=== PATIENT | male | born 1955 | race Caucasian/White ===

== ENCOUNTER 2019-07-30 14:10 | Outpatient (CLI) | payer MEDICARE, SELFPAY ==
--- NOTE | ~2019-07-30 | US_ITS ---
EXAMINATION: US arterial ankle brachial ind DATE: 07/30/2019 15:05 INDICATION: Atherosclerosis of the [place] arteries of the lower extremity with claudication TECHNIQUE: Segmental pressures and plethysmographic and Doppler waveforms of the brachial and lower e xtremity arteries were obtained. COMPARISON: None. FINDINGS: Right and left brachial artery pressures of 131 mm Hg and 120 mm Hg, respectively, are concordant (no rmal difference <= 30 mmHg). The right ankle-brachial index (ASYA) is 0.88 (normal >= 0.9-1.0). The right great toe-brachial index (TBI) is 0.45 (normal >= 0.65). Arterial Doppler waveforms are biphasic with brisk systolic upstrokes at both the right posterior tibial and dorsalis pedis arteries. The left ASYA is 0.81. The left TBI is 0.64. Arterial Doppler waveforms are biphasic with brisk systol ic upstroke at the left dorsalis pedis artery and with borderline delayed upstrokes at the left poste rior tibial artery. IMPRESSION: 1. Mild arterial occlusive disease to the bilateral lower limbs with mildly decreased bilateral ABIs and TBI's. 2. Cardiac arrhythmia is present. Correlate with EKG. Reviewed, dictated and finalized at location A. TY INVESTIGATOR IMPRESSION: 1. Mild arterial occlusive disease to the bilateral lower limbs with mildly dec reased bilateral ABIs and TBI's. 2. Cardiac arrhythmia is present. Correlate with EKG.
== END 2019-07-30 14:11 | disposition home or self-care (01) ==
PROVIDERS: Visit Provider Nurse Practitioner Adult Health
DX: I70.213 Atherosclerosis of native arteries of extremities with intermittent claudication, bilateral legs (principal)
CPT/HCPCS: 93922

== ENCOUNTER 2019-09-06 14:42 | Inpatient (IN) | payer MEDICARE, SELFPAY ==
[2019-09-06] VITALS (8 sets, daily range): BP systolic 110–142; BP diastolic 68–102; PULSE 83–116; RESP 17–22; TEMP 36.3–36.6; O2SAT 97–99; BMI 30.7
--- NOTE | ~2019-09-06 | CT_ITS ---
EXAMINATION: CTA chest PE protocol DATE: 09/06/2019 16:25 INDICATION: Dyspnea. History of pulmonary embolism. TECHNIQUE: Computed tomography (CT) of the chest was performed with 100 cc Omnipaque 350 intravenous contrast. Automated exposure control and iterative reconstruction technique were employed. Exam dose: 802.34 mGy-cm total exam DLP. COMPARISON: 05/19/2018 CTA chest (pulmonary artery) FINDINGS: There is diagnostic contrast enhancement of the pulmonary arteries and no evidence of pulmo nary embolism. The ascending aorta measures up to 3.9 cm diameter. There is up to 3.1 cm diameter of the aortic arch. Mild emphysema. No pulmonary infiltrate or consolidation, pulmonary mass or pneumothorax. 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 IMPRESSION: Mild thoracic aortic aneurysm. Aortic, great vessel and coronary artery calcifications. No evidence of pulmonary embolism Normal heart size. No pericardial or pleural effusion. Reviewed, dictated and finalized at Location [facility]. Reviewed, dictated and finalized at location B.
--- NOTE | 2019-09-06 15:29 | ECG_ITS ---
Measurements Intervals [place] Rate: 115 P: 48 ID: [id number] QRS: -23 QRSD: 101 T: 71 QT: 308 QTc: 426 Interpretive Statements SINUS TACHYCARDIA POSSIBLE LEFT ATRIAL ENLARGEMENT INCOMPLETE RIGHT BUNDLE BRANCH BLOCK BORDERLINE R WAVE PROGRESSION, ANTERIOR LEADS BASELINE ARTIFACT- II, III, AVR, AVL, AVF, V1-V2, V4-V6 ABNORMAL ECG Electronically Signed On 09-06-2019 16:04:30 CDT by Xiang Gaona D.O.
--- NOTE | 2019-09-06 15:44 | ED.CHESTPAIN ---
HPI - Chest Pain General Chief Complaint: Dizziness <Abida Salazar MD - Last Filed: 09/06/19 15:59> Stated Complaint: chest pain/sob <Abida Salazar MD - Last Filed: 09/06/19 15:59> Time Seen by Provider: 09/06/19 15:05 <Abida Salazar MD - Last Filed: 09/06/19 15:59> Source: patient <Abida Salazar MD - Last Filed: 09/06/19 15:59> Mode of arrival: ambulatory <Abida Salazar MD - Last Filed: 09/06/19 15:59> Limitations: no limitations <Abida Salazar MD - Last Filed: 09/06/19 15:59> History of Present Illness HPI narrative: Patient is a 64-year-old male presents to the emergency department with complaint of chest pain, shortness of breath, and dizziness. Patient states he began working on a minor [employer] project yesterday and had onset shortly after starting work of severe dizziness and shortness of breath accompanied by chest pain and diaphoresis. Patient finished his project and went home and rested, but symptoms persisted most of the day. Today patient reports some ongoing shortness of breath and dizziness, though not as severe as yesterday. He does not have any chest pain or diaphoresis today. Patient contacted primary care physician office and was advised to come to the emergency department for evaluation. Patient does report having had fever, conjunctivitis, and sore throat last week, but those symptoms resolved several days ago. <Abida Salazar MD - Last Filed: 09/06/19 15:59> MD complaint: chest pain <Abida Salazar MD - Last Filed: 09/06/19 15:59> Pertinent past history: other (PE) <Abida Salazar MD - Last Filed: 09/06/19 15:59> Onset (ago): day(s) <Abida Salazar MD - Last Filed: 09/06/19 15:59> Timing of current episode: now resolved <Abida Salazar MD - Last Filed: 09/06/19 15:59> Onset: during exertion <Abida Salazar MD - Last Filed: 09/06/19 15:59> Pain location: substernal <Abida Salazar MD - Last Filed: 09/06/19 15:59> Quality: other (Pressure) <Abida Salazar MD - Last Filed: 09/06/19 15:59> Context: history of DVT/PE <Abida Salazar MD - Last Filed: 09/06/19 15:59> Associated symptoms: diaphoresis and dyspnea <Abida Salazar MD - Last Filed: 09/06/19 15:59> Related Data Home Medications: Home Medications Medication Instructions Recorded Confirmed apixaban 5 mg tablet 5 mg PO BID 04/30/19 04/30/19 aspirin 81 mg tablet,delayed 81 mg PO DAILY 04/30/19 04/30/19 release ergocalciferol (vitamin D2) 400 400 unit PO DAILY 04/30/19 04/30/19 unit tablet <Abida Salazar MD - Last Filed: 09/06/19 15:59> Allergies/Adverse Reactions: Allergies Allergy/AdvReac Type Severity Reaction Status Date / Time No Known Allergies Allergy Verified 08/07/19 09:30 <Abida Salazar MD - Last Filed: 09/06/19 15:59> Review of Systems Review of Systems: All systems reviewed & are unremarkable except as noted in HPI and below <Abida Salazar MD - Last Filed: 09/06/19 15:59> Cardiovascular: Cardiovascular: Reports chest pain <Abida Salazar MD - Last Filed: 09/06/19 15:59> Respiratory: Respiratory: Denies cough and Denies dyspnea <Abida Salazar MD - Last Filed: 09/06/19 15:59> PMFSH Past Medical History Medical History: Medical History Achilles tendinitis of left lower extremity Arthritis of left subtalar joint DVT (deep venous thrombosis) History of venous thromboembolism Hypertension Post-traumatic arthritis of left ankle Pulmonary embolism Sleep disorder TIA (transient ischemic attack) <Abida Salazar MD - Last Filed: 09/06/19 15:59> Surgical History Surgical History: Surgical History H/O spinal fusion History of lumbar fusion H
[2019-09-06 15:52] LABS: Basophils Percent Auto 0.3 % (0.2-1.2); Eosinophils Absolute Auto 0.1 K/mm3 (0-0.3); Hematocrit 49.8 % (42.0-52.0); Hemoglobin 16.7 g/dL (14.0-18.0); Immature Granulocyte Absolute 0.02 K/mm3 (0.00-0.031); Immature Granulocyte Percent A 0.3 % (0-0.5); Lymphocytes Absolute Auto 2.11 K/mm3 (0.9-3.2); Lymphocytes Percent Auto 31.3 % (18.3-44.2); Mean Corpuscular HGB Conc 33.5 g/dl (32-36); Mean Corpuscular Hemoglobin 32.4 pg (26-34); Mean Corpuscular Volume 96.7 fl (80-100); Mean Platelet Volume 10.3 fl (7.4-10.4); Monocytes Absolute Auto 0.5 K/mm3 (0.1-0.6); Monocytes Percent Auto 7.3 % (2.6-8.5); Neutrophils Percent Auto 59.8 % (45.5-73.1); Platelet Count Result 338 k/mm3 (150-375); Red Blood Count 5.15 M/mm3 (4.6-6.20); Red Cell Distribution Width 13.6 % (11.5-14.5); White Blood Count 6.7 K/mm3 (4.5-10.0)
[2019-09-06 16:02] LABS: Prothrombin Time 12.8 Seconds (11.1-14.7)
[2019-09-06 16:04] LABS: Alanine Aminotransferase 32 U/L (4-50); Albumin Level 4.2 g/dL (3.5-5.1); Alkaline Phosphatase 91 U/L (38-126); Aspartate Amino Transferase 24 U/L (17-59); Bilirubin,Total 0.4 mg/dL (0.2-1.3); Blood Urea Nitrogen 19 mg/dL (9-20); Calcium 9.4 mg/dL (8.4-10.2); Carbon Dioxide 25 mmol/L (22-30); Chloride 103 mmol/L (98-107); Estimated Glomerular Filt Rate > 60; Glucose 120 mg/dL (75-110); Potassium 3.7 mmol/L (3.4-5.0); Sodium 137 mmol/L (137-145)
[2019-09-06 16:13] LABS: NT Pro B Type Natriuretic Pept 2130 PG/ML (5-100)
[2019-09-06 16:17] LABS: Troponin I < 0.012 ng/mL (0.000-0.034)
--- NOTE | 2019-09-06 18:30 | PM.IMHP ---
H&P: HPI History of Present Illness Chief complaint: Chest pain. 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 He rested for a short period of time, before finishing the job. The symptoms did improve, but were pretty constant throughout the evening. When questioned regarding the carpentry work, he was using a jigsaw and an electric maggie, and says there was not any significant exertion with that. In any event, not long after waking this morning, and simply walking around the home, his symptoms returned. He goes on to admit that the symptoms have had been intermittently over the past month or so, and he originally attributed to ?being out of shape.? He has no known history of coronary artery disease, and notes having a stress test about 4 years ago for evaluation of palpitations, which was reportedly unremarkable. He does have a family history of early-onset heart disease, mentioning that one of his brothers from an MD at age 55. 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 He does not suffer from heartburn or dysphagia, but does mention that he has had feelings of gas in his epigastrium, for which she has been belching more than usual. No pleuritic pain, palpitations, orthopnea, lower extremity edema, nausea, or vomiting. Review of Systems Review of Systems: Narrative: Twelve systems were reviewed with pertinent positives and negatives as per HPI. No fever, chills, or sweats. No recent cold or flu-like symptoms. Denies nausea, vomiting, and diarrhea. No dysuria. No lower extremity edema, calf pain, or tenderness. He has chronic back pain due to spinal stenosis and degenerative disc disease for which he recently received injections. It sounds as though he is planning for radiofrequency ablation in the upcoming months. Except as documented, all other systems were reviewed and are negative. [facility] Past Medical History Medical History (Updated 09/06/19 @ 22:52 by Zoe Zayas PA-C) Arthritis of left subtalar joint Chronic back pain Current use of [facility] anticoagulation CVA (cerebral vascular accident) At the age of 39, presenting with left hemiplegia and dysarthria without significant residual deficit. History of pulmonary embolism Hypertension Post-traumatic arthritis of left ankle Recurrent deep vein thrombosis (DVT) Sleep disorder Spinal cord stimulator status Surgical History Surgical History (Updated 09/06/19 @ 22:49 by Zoe Zayas PA-C) History of lumbar fusion History of open reduction and internal fixation (ORIF) procedure Left ankle. Status post cervical spinal fusion Family History Family History (Updated 09/06/19 @ 22:49 by Zoe Zayas PA-C) Sibling Acute myocardial infarction at age 55. Mother Family history of malignant neoplasm, Onset Age: 50 Other Heart disease Social History Social History (Updated 09/06/19 @ 22:50 by Zoe Zayas PA-C) Social History: The patient lives with his on [address] acres outside of [place], [place]. They have identical twin sons, who were adopted 33 years ago. He is a lifelong nonsmoker and denies alcohol and drug abuse. He has recently retired. He designates his , Annie, as his surrogate decision maker and he wishes to be a full code. Spiritual care concerns: Yes (Mosque) Agree to blood products: Yes Meds Home Medications and Allergies Home Medications Medication Instructions Recorded Confirmed Type apixaban 5 mg tablet 5 mg PO BID
--- NOTE | 2019-09-06 18:30 | ADMGEN ---
This patient, Valentino Graves, was admitted to IMU Room 202-01. Patient/family oriented to hospital policies and general routines including ID bracelet, bed and alarms, visiting hours, pain management, procedures, bathroom and other care routines, personal items, smoking policy, room service/diet, and visiting hours. Valuables list has been completed. Information on how to activate the Rapid Response Team has been discussed. Patient/Family are encouraged to report perceived risks to care and to ask questions if they do not understand what they are told or what they should do.
[2019-09-06 18:53] LABS: Troponin I < 0.012 ng/mL (0.000-0.034)
[2019-09-06 22:32] LABS: Troponin I < 0.012 ng/mL (0.000-0.034)
[2019-09-07] VITALS (15 sets, daily range): BP systolic 97–128; BP diastolic 63–80; PULSE 68–103; RESP 16–20; TEMP 36.4–36.8; O2SAT 97–99
[2019-09-07 04:50] LABS: Basophils Percent Auto 0.5 % (0.2-1.2); Eosinophils Absolute Auto 0.1 K/mm3 (0-0.3); Eosinophils Percent Auto 1.8 % (0-4.4); Hematocrit 45.1 % (42.0-52.0); Hemoglobin 14.7 g/dL (14.0-18.0); Immature Granulocyte Absolute 0.02 K/mm3 (0.00-0.031); Immature Granulocyte Percent A 0.3 % (0-0.5); Lymphocytes Absolute Auto 2.02 K/mm3 (0.9-3.2); Lymphocytes Percent Auto 33.1 % (18.3-44.2); Mean Corpuscular HGB Conc 32.6 g/dl (32-36); Mean Corpuscular Hemoglobin 31.8 pg (26-34); Mean Corpuscular Volume 97.6 fl (80-100); Mean Platelet Volume 9.7 fl (7.4-10.4); Monocytes Absolute Auto 0.6 K/mm3 (0.1-0.6); Monocytes Percent Auto 9.2 % (2.6-8.5); Neutrophils Absolute Auto 3.4 K/mm3 (1.3-6.7); Neutrophils Percent Auto 55.1 % (45.5-73.1); Platelet Count Result 264 k/mm3 (150-375); Red Blood Count 4.62 M/mm3 (4.6-6.20); Red Cell Distribution Width 13.6 % (11.5-14.5); White Blood Count 6.1 K/mm3 (4.5-10.0)
[2019-09-07 05:03] LABS: Blood Urea Nitrogen 19 mg/dL (9-20); Calcium 8.5 mg/dL (8.4-10.2); Carbon Dioxide 25 mmol/L (22-30); Chloride 104 mmol/L (98-107); Cholesterol 128 mg/dL (0-200); Estimated CRCL calculation 80 ml/min; Estimated Glomerular Filt Rate > 60; Glucose 109 mg/dL (75-110); HDL Direct 31 mg/dL; Potassium 3.9 mmol/L (3.4-5.0); Sodium 137 mmol/L (137-145); Triglycerides 72 mg/dL (<150)
[2019-09-07 05:14] LABS: LDL Cholesterol Direct 83 mg/dL
[2019-09-07] MEDS: METOPROLOL TARTRATE 12.5 MG TABLET PO ×3 (05:19→20:29)
[2019-09-07] MEDS: ASPIRIN 81 MG ENTERIC TABLET PO (08:17)
[2019-09-07] MEDS: hydroCHLOROthiazide 12.5 MG CAPSULE PO (08:17)
[2019-09-07] MEDS: CHOLECALCIFEROL 1,000 UNIT TABLET 2000 UNITS PO (08:17)
[2019-09-07] MEDS: AMLODIPINE BESYLATE 5 MG TABLET 10 MG PO (08:17)
--- NOTE | 2019-09-07 10:00 | PM.IMPN ---
Progress Note: A&P Assessment and Plan (1) Chest pain: Qualifiers: Chest pain type: unspecified Qualified Code(s): R07.9 - Chest pain, unspecified Code(s): R07.9 - Chest pain, unspecified Status: Acute Assessment and Plan: Cardiology consulted and appreciate input. EKG with no acute changes. Serial troponin levels negative. However, patient with family history and enough high risk, plan for cardiac catheterization non emergently on Tuesday. CTA was done showing calcification of the aorta, great vessels and coronary artery disease. Telemetry reviewed on 09/07/2019 with sinus rhythm. Will continue metoprolol. On aspirin. will monitor. (2) Hypertension: Qualifiers: Hypertension type: essential hypertension Qualified Code(s): I10 - Essential (primary) hypertension Code(s): I10 - Essential (primary) hypertension Status: Acute Assessment and Plan: Blood pressure reviewed on 09/07/2019 with variability but acceptable. Continue metoprolol, amlodipine and hydrochlorothiazide. Will continue to monitor. 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 Eliquis now on hold with plan for cardiac catheterization on Tuesday. (4) History of pulmonary embolism: Code(s): Z86.711 - Personal history of pulmonary embolism Status: Acute Assessment and Plan: History of clotting as noted above. Home Eliquis on hold. (5) DVT prophylaxis: Code(s): Z29.9 - Encounter for prophylactic measures, unspecified Status: Acute Assessment and Plan: With plan for coronary angiogram, will place SCDs. Time Spent With Patient Time with patient: 15 - 25 minutes Subjective Date/time seen: 09/07/19 10:00 Interval history: Date of Service; 09/07/2019. Admitted with chest pain. Patient reports no chest pain this morning. No dizziness this morning. No longer having burping with chest pressure. No shortness of breath today. No abdominal pain. No nausea or vomiting. present. Review of Systems Review of Systems: Narrative: Feeling better today. Constitutional: Constitutional: Denies chills and Denies fever(s) ENT: Denies nasal congestion and Denies nasal discharge Cardiovascular: Cardiovascular: Denies chest pain and Denies lightheadedness Respiratory: Respiratory: Denies dyspnea Gastrointestinal: Gastrointestinal: Denies abdominal pain, Denies heartburn, Denies nausea and Denies vomiting Genitourinary: Genitourinary: Reports no additional male genitourinary complaints Musculoskeletal: Musculoskeletal: Reports no additional musculoskeletal complaints Integumentary/Breasts: Skin/Breast: Denies rash Neurologic: Denies confusion and Denies headache(s) Psychiatric: Psychiatric: Denies anxiety and Denies depression Exam Narrative: Exam Narrative: Awake and alert. Const: General: no acute distress HENMT: Mouth: Yes moist mucous membranes Neck: Neck: supple Lymphatic: lymphadenopathy not noted Resp: Auscultation: clear to auscultation bilaterally, no rales and no wheezes Cardio: Rate: regular rate Rhythm: regular rhythm GI: Inspection: non-distended GI Palp: Yes Soft to palpation and No Tenderness to palpation present (GI) Auscultation: normal bowel sounds Skin: General skin exam: no rashes or lesions noted Neuro: Cognition (Neuro): normal cognition Speech: normal speech Extrem: General: no edema Psych: Mental Status: mental status grossly normal Affect: normal affect Objective Data Vital Signs Vital Signs: Vital Signs - 24 hr 09/06/19 14:55 09/06/19 15:30 09/06/19 17:15 Temperature 97.9 F Pulse Rate 116 H 93 Respiratory Rate 20 17 Blood Pressure 132/102 H 110/68 Pulse Oximetry 97 99 98 09/06/19 18:20 09/06/19 18:35 09/06/19 20:00 Temperature 97.3 F
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
[2019-09-08] VITALS (14 sets, daily range): BP systolic 110–138; BP diastolic 53–81; PULSE 66–99; RESP 16–24; TEMP 36.3–36.6; O2SAT 95–98
[2019-09-08] MEDS: hydroCHLOROthiazide 12.5 MG CAPSULE PO (08:56)
[2019-09-08] MEDS: AMLODIPINE BESYLATE 5 MG TABLET 10 MG PO (08:57)
[2019-09-08] MEDS: CHOLECALCIFEROL 1,000 UNIT TABLET 2000 UNITS PO (08:57)
[2019-09-08] MEDS: ASPIRIN 81 MG ENTERIC TABLET PO (08:57)
[2019-09-08] MEDS: METOPROLOL TARTRATE 12.5 MG TABLET PO ×2 (08:57→22:25)
--- NOTE | 2019-09-08 09:34 | PM.IMPN ---
Progress Note: A&P Assessment and Plan (1) Chest pain: Qualifiers: Chest pain type: unspecified Qualified Code(s): R07.9 - Chest pain, unspecified Code(s): R07.9 - Chest pain, unspecified Status: Acute Assessment and Plan: Cardiology consulted and appreciate input. EKG on admission with no acute changes. Serial troponin levels negative. However, patient with family history and enough high risk, plan for cardiac catheterization non emergently on Tuesday as patient was taking Eliquis at home for history of DVT/PE and would prefer to allow appropriate time for decrease in systemic anticoagulation effects. CTA was done showing calcification of the aorta, great vessels and coronary artery disease. Telemetry reviewed on 09/08/2019 with sinus rhythm. Will continue metoprolol and aspirin. Will continue to monitor. (2) Hypertension: Qualifiers: Hypertension type: essential hypertension Qualified Code(s): I10 - Essential (primary) hypertension Code(s): I10 - Essential (primary) hypertension Status: Acute Assessment and Plan: Blood pressure reviewed on 09/08/2019 and stable. Will continue metoprolol, amlodipine and hydrochlorothiazide. Will continue to monitor. 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 Eliquis now on hold with plan for cardiac catheterization on Tuesday. (4) History of pulmonary embolism: Code(s): Z86.711 - Personal history of pulmonary embolism Status: Acute Assessment and Plan: History of clotting as noted above. Home Eliquis on hold for cardiac catheterization. (5) DVT prophylaxis: Code(s): Z29.9 - Encounter for prophylactic measures, unspecified Status: Acute Assessment and Plan: With plan for coronary angiogram, SCDs. Time Spent With Patient Time with patient: 15 - 25 minutes Subjective Date/time seen: 09/08/19 09:34 Interval history: Date of Service: 09/08/2019. Admitted with chest pain. Had episode of feeling short of breath with palpations when saying goodbye to his last night. No current chest pain. No current shortness of breath. No abdominal pain. No headache or dizziness. Review of Systems Constitutional: Constitutional: Denies chills and Denies fever(s) ENT: Denies nasal congestion and Denies nasal discharge Cardiovascular: Cardiovascular: Denies chest pain and Denies lightheadedness Respiratory: Respiratory: Denies cough and Denies dyspnea Gastrointestinal: Gastrointestinal: Denies abdominal pain, Denies heartburn, Denies nausea and Denies vomiting Genitourinary: Genitourinary: Reports no additional male genitourinary complaints Musculoskeletal: Musculoskeletal: Reports no additional musculoskeletal complaints Integumentary/Breasts: Skin/Breast: Denies rash Neurologic: Denies headache(s) Psychiatric: Psychiatric: Denies anxiety, Denies confusion and Denies depression Exam Narrative: Exam Narrative: Awake and alert. Const: General: no acute distress HENMT: Mouth: Yes moist mucous membranes Neck: Neck: supple Lymphatic: lymphadenopathy not noted Resp: Auscultation: clear to auscultation bilaterally, no rales and no wheezes Cardio: Rate: regular rate Rhythm: regular rhythm GI: Inspection: non-distended Auscultation: normal bowel sounds Skin: General skin exam: no rashes or lesions noted Neuro: General: No confusion Cognition (Neuro): normal cognition Speech: normal speech Extrem: General: no edema Psych: Mental Status: mental status grossly normal Affect: normal affect Objective Data Vital Signs Vital Signs: Vital Signs - 24 hr 09/07/19 10:00 09/07/19 12:00 09/07/19 14:00 Temperature 97.6 F Pulse Rate 75 89 76 Respiratory Rate 20 Blood Pressure 103/74 Pulse Oximetry 98
--- NOTE | 2019-09-08 09:34 | PM.PNCARD ---
Progress Note: A&P Additional Plan 64-year-old man with chest pain syndrome worrisome for myocardial ischemia. Patient is clinically stable and awaiting angiography which we intend to do on Tuesday morning. Procedure could not be done safely yesterday because of systemic anticoagulation with apixaban. Subjective Date/time seen: Date of service: 09/08/19 09:34 Interval history: Follow-up visit for episodes of chest pain suspicious of myocardial ischemia. Asymptomatic this morning Patient reports 1 episode of some shortness of breath and tachycardia yesterday evening. I was not notified of any significant arrhythmias. Exam Const: General: comfortable and no acute distress HENMT: Mouth: Yes moist mucous membranes Eyes: Sclera: sclerae normal Pupils: Equal, round and reactive pupils present Neck: Neck: supple and no JVD Thyroid: thyroid normal Resp: Effort & Inspection: normal respiratory effort Auscultation: clear to auscultation bilaterally Cardio: Rate: regular rate Rhythm: regular rhythm Other: No gallop no murmur GI: Auscultation: normal bowel sounds Skin: General skin exam: normal color Neuro: Cognition (Neuro): normal cognition Extrem: General: normal to inspection Objective Data Vital Signs Vital Signs: Vital Signs - 24 hr 09/07/19 10:00 09/07/19 12:00 09/07/19 14:00 Temperature 36.4 C Pulse Rate 75 89 76 Respiratory Rate 20 Blood Pressure 103/74 Pulse Oximetry 98 09/07/19 16:00 09/07/19 18:00 09/07/19 20:00 Temperature 36.6 C 36.5 C Pulse Rate 80 92 84 Respiratory Rate 20 16 Blood Pressure 125/74 128/77 Pulse Oximetry 99 97 09/07/19 20:29 09/07/19 22:00 09/08/19 00:00 Temperature 36.3 C L Pulse Rate 81 68 71 Respiratory Rate 18 Blood Pressure 119/57 L Pulse Oximetry 97 09/08/19 01:39 09/08/19 04:00 09/08/19 05:58 Temperature 36.4 C L Pulse Rate 73 69 66 Respiratory Rate 16 Blood Pressure 122/53 L Pulse Oximetry 95 09/08/19 08:00 09/08/19 08:57 Temperature 36.4 C L Pulse Rate 99 91 Respiratory Rate 16 Blood Pressure 116/75 Pulse Oximetry 98 Intake/Output Intake/Output: Intake & Output 09/05/19 09/06/19 09/07/19 09/08/19 23:59 23:59 23:59 23:59 Intake Total 1796 876 Output Total 500 790 Balance 1296 86 Meds/Results Medications: Active Medications Generic Name Dose Route Start Last Admin Trade Name Freq PRN Reason Stop Dose Admin Amlodipine Besylate 10 mg 09/07/19 09:00 09/08/19 08:57 Norvasc PO 10 mg DAILY JOEY Administration Aspirin 81 mg 09/07/19 09:00 09/08/19 08:57 Aspirin Ec PO 81 mg DAILY JOEY Administration Hydrochlorothiazide 12.5 mg 09/07/19 09:00 09/08/19 08:56 Hydrochlorothiazide PO 12.5 mg DAILY JOEY Administration Metoprolol Tartrate 12.5 mg 09/06/19 21:40 09/08/19 08:57 Lopressor PO 12.5 mg Q12HR JOEY Administration Polyethylene Glycol 17 gm 09/07/19 11:38 Miralax PO QAM PRN Constipation Vitamin D 2,000 unit 09/07/19 09:00 09/08/19 08:57 Vitamin D PO 10/07/19 09:01 2,000 unit DAILY JOEY Administration Radiology Results: ITS Impressions Chest CTA 09/06/19 16:33 IMPRESSION: Mild thoracic aortic aneurysm. Aortic, great vessel and coronary artery calcifications. No evidence of pulmonary embolism Normal heart size. No pericardial or pleural effusion. Quality VTE Prophylaxis VTE prophylaxis: mechanical ordered
[2019-09-08] MEDS: BISACODYL 5 MG TABLET EC PO (14:53)
[2019-09-09] VITALS (14 sets, daily range): BP systolic 110–141; BP diastolic 75–96; PULSE 63–101; RESP 16–20; TEMP 36.4–37.1; O2SAT 96–99
--- NOTE | 2019-09-09 07:35 | PM.IMPN ---
Progress Note: A&P Assessment and Plan (1) Chest pain: Qualifiers: Chest pain type: unspecified Qualified Code(s): R07.9 - Chest pain, unspecified Code(s): R07.9 - Chest pain, unspecified Status: Acute Assessment and Plan: Cardiology consulted and appreciate input. EKG on admission with no acute changes. Serial troponin levels negative. However, patient with family history and enough high risk, plan for cardiac catheterization non emergently tomorrow as patient was taking Eliquis at home for history of DVT/PE and would prefer to allow appropriate time for decrease in systemic anticoagulation effects. CTA was done on admission showing calcification of the aorta, great vessels and coronary artery disease. Telemetry reviewed on 09/09/2019 with continued sinus rhythm. Will continue metoprolol and aspirin. Will continue to monitor. (2) Hypertension: Qualifiers: Hypertension type: essential hypertension Qualified Code(s): I10 - Essential (primary) hypertension Code(s): I10 - Essential (primary) hypertension Status: Acute Assessment and Plan: Blood pressure reviewed on 09/09/2019 and remains stable. Will continue metoprolol, amlodipine and hydrochlorothiazide. Will continue to monitor. 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 Eliquis remains on hold with plan for cardiac catheterization tomorrow. (4) History of pulmonary embolism: Code(s): Z86.711 - Personal history of pulmonary embolism Status: Acute Assessment and Plan: History of clotting as noted above. Home Eliquis remains on hold for cardiac catheterization. (5) DVT prophylaxis: Code(s): Z29.9 - Encounter for prophylactic measures, unspecified Status: Acute Assessment and Plan: With plan for coronary angiogram, SCDs. Time Spent With Patient Time with patient: 15 - 25 minutes Subjective Date/time seen: 09/09/19 07:35 Interval history: Date of Service: 09/09/2019. Admitted with chest pain. No further episodes of chest pain or shortness of breath. Was having trouble with bowel movements yesterday but had bowel movement today. Appetite is better. No abdominal pain. No headache or dizziness. Review of Systems Constitutional: Constitutional: Denies chills and Denies fever(s) ENT: Denies nasal congestion and Denies nasal discharge Cardiovascular: Cardiovascular: Denies chest pain and Denies lightheadedness Respiratory: Respiratory: Denies cough and Denies dyspnea Gastrointestinal: Gastrointestinal: Denies abdominal pain, Denies constipation, Denies heartburn, Denies nausea and Denies vomiting Genitourinary: Genitourinary: Reports no additional male genitourinary complaints Musculoskeletal: Musculoskeletal: Reports no additional musculoskeletal complaints Integumentary/Breasts: Skin/Breast: Denies rash Neurologic: Denies headache(s) Psychiatric: Psychiatric: Denies anxiety and Denies depression Exam Narrative: Exam Narrative: Awake and alert. Const: General: no acute distress HENMT: Mouth: Yes moist mucous membranes Neck: Neck: supple Lymphatic: lymphadenopathy not noted Resp: Auscultation: clear to auscultation bilaterally, no rales and no wheezes Cardio: Rate: regular rate Rhythm: regular rhythm GI: Inspection: non-distended GI Palp: Yes Soft to palpation and No Tenderness to palpation present (GI) Auscultation: normal bowel sounds Skin: General skin exam: no rashes or lesions noted Neuro: Cognition (Neuro): normal cognition Speech: normal speech Extrem: General: no edema Psych: Mental Status: mental status grossly normal Affect: normal affect Objective Data Vital Signs Vital Signs: Vital Signs - 24 hr 09/08/19 08:00 09/08/19 08:57 09/08/19 10:41 Temperature 97.5 F L
--- NOTE | 2019-09-09 09:53 | PM.PNCARD ---
Progress Note: A&P Additional Plan Plans to proceed with left heart catheterization tomorrow morning Obviously disposition pending those finding Time Spent With Patient Time with patient: 15 - 25 minutes Subjective Date/time seen: Date of service: 09/09/19 09:53 Interval history: Follow-up visit in 64-year-old man coming in with intermittent chest pain concerning for ischemia Had been anticoagulated because of DVT/PE history Asymptomatic this morning feels well Discussed plans for coronary angiogram tomorrow morning Exam Const: General: comfortable and no acute distress HENMT: Mouth: Yes moist mucous membranes Eyes: Sclera: sclerae normal Pupils: Equal, round and reactive pupils present Neck: Neck: supple and no JVD Thyroid: thyroid normal Resp: Effort & Inspection: normal respiratory effort Auscultation: clear to auscultation bilaterally Cardio: Rate: regular rate Rhythm: regular rhythm Other: No murmur no gallop no rub GI: Auscultation: normal bowel sounds Skin: General skin exam: normal color Extrem: General: normal to inspection Objective Data Vital Signs Vital Signs: Vital Signs - 24 hr 09/08/19 10:41 09/08/19 12:00 09/08/19 14:36 Temperature 36.6 C Pulse Rate 82 68 83 Respiratory Rate 24 H Blood Pressure 110/75 Pulse Oximetry 98 09/08/19 16:00 09/08/19 18:37 09/08/19 20:00 Temperature 36.6 C 36.6 C Pulse Rate 83 87 89 Respiratory Rate 20 16 Blood Pressure 114/75 138/81 Pulse Oximetry 96 98 09/08/19 22:00 09/08/19 22:25 09/09/19 00:00 Temperature 37.1 C Pulse Rate 75 99 74 Respiratory Rate 16 Blood Pressure 112/75 Pulse Oximetry 96 09/09/19 02:00 09/09/19 04:00 09/09/19 05:46 Temperature 36.4 C L Pulse Rate 64 63 66 Respiratory Rate 18 Blood Pressure 110/85 Pulse Oximetry 99 09/09/19 08:00 Temperature 36.4 C L Pulse Rate 98 Respiratory Rate 16 Blood Pressure 123/84 Pulse Oximetry 96 Intake/Output Intake/Output: Intake & Output 09/06/19 09/07/19 09/08/19 09/09/19 23:59 23:59 23:59 23:59 Intake Total 1796 1356 910 Output Total 500 1790 250 Balance 1296 -434 660 Meds/Results Medications: Active Medications Generic Name Dose Route Start Last Admin Trade Name Freq PRN Reason Stop Dose Admin Amlodipine Besylate 10 mg 09/07/19 09:00 09/08/19 08:57 Norvasc PO 10 mg DAILY JOEY Administration Aspirin 81 mg 09/07/19 09:00 09/08/19 08:57 Aspirin Ec PO 81 mg DAILY JOEY Administration Bisacodyl 5 mg 09/08/19 14:08 09/08/19 14:53 Dulcolax Tab PO 5 mg QAM PRN Administration Constipation Hydrochlorothiazide 12.5 mg 09/07/19 09:00 09/08/19 08:56 Hydrochlorothiazide PO 12.5 mg DAILY JOEY Administration Metoprolol Tartrate 12.5 mg 09/06/19 21:40 09/08/19 22:25 Lopressor PO 12.5 mg Q12HR JOEY Administration Polyethylene Glycol 17 gm 09/09/19 09:00 Miralax PO QAM JOEY Vitamin D 2,000 unit 09/07/19 09:00 09/08/19 08:57 Vitamin D PO 10/07/19 09:01 2,000 unit DAILY JOEY Administration Radiology Results: ITS Impressions Chest CTA 09/06/19 16:33 IMPRESSION: Mild thoracic aortic aneurysm. Aortic, great vessel and coronary artery calcifications. No evidence of pulmonary embolism Normal heart size. No pericardial or pleural effusion. Quality VTE Prophylaxis VTE prophylaxis: mechanical ordered
[2019-09-09] MEDS: hydroCHLOROthiazide 12.5 MG CAPSULE PO (10:20)
[2019-09-09] MEDS: METOPROLOL TARTRATE 12.5 MG TABLET PO ×2 (10:20→20:27)
[2019-09-09] MEDS: AMLODIPINE BESYLATE 5 MG TABLET 10 MG PO (10:20)
[2019-09-09] MEDS: ASPIRIN 81 MG ENTERIC TABLET PO (10:20)
[2019-09-09] MEDS: CHOLECALCIFEROL 1,000 UNIT TABLET 2000 UNITS PO (10:21)
[2019-09-09] MEDS: polyethylene glycoL 3350 17 GM POWD.PACK PO (10:24)
[2019-09-10] VITALS (27 sets, daily range): BP systolic 101–167; BP diastolic 76–100; PULSE 65–96; RESP 13–22; TEMP 36.2–37; O2SAT 95–99
[2019-09-10 07:11] LABS: Blood Urea Nitrogen 17 mg/dL (9-20); Calcium 9.2 mg/dL (8.4-10.2); Carbon Dioxide 28 mmol/L (22-30); Chloride 101 mmol/L (98-107); Estimated CRCL calculation 80 ml/min; Estimated Glomerular Filt Rate > 60; Glucose 105 mg/dL (75-110); Potassium 4.1 mmol/L (3.4-5.0); Sodium 135 mmol/L (137-145)
--- NOTE | 2019-09-10 08:59 | PM.IMPN ---
Progress Note: A&P Assessment and Plan (1) Chest pain: Qualifiers: Chest pain type: unspecified Qualified Code(s): R07.9 - Chest pain, unspecified Code(s): R07.9 - Chest pain, unspecified Status: Acute Assessment and Plan: Cardiology consulted and appreciate input. EKG on admission with no acute changes. Serial troponin levels negative. However, patient with family history and enough high risk, plan for cardiac catheterization non emergently this morning as patient was taking Eliquis at home for history of DVT/PE and would prefer to allow appropriate time for decrease in systemic anticoagulation effects. CTA was done on admission showing calcification of the aorta, great vessels and coronary artery disease. Telemetry reviewed on 09/10/2019 with continued sinus rhythm. Will continue metoprolol and aspirin. Will continue to monitor. Await further recommendations from Cardiology. (2) Hypertension: Qualifiers: Hypertension type: essential hypertension Qualified Code(s): I10 - Essential (primary) hypertension Code(s): I10 - Essential (primary) hypertension Status: Acute Assessment and Plan: Blood pressure reviewed on 09/10/2019. Mild variation but stable. Will continue metoprolol, amlodipine and hydrochlorothiazide. Will continue to monitor. 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 Jose Ais remains on hold with cardiac catheterization today. (4) History of pulmonary embolism: Code(s): Z86.711 - Personal history of pulmonary embolism Status: Acute Assessment and Plan: History of clotting as noted above. Home Jose Ais remains on hold for cardiac catheterization. (5) DVT prophylaxis: Code(s): Z29.9 - Encounter for prophylactic measures, unspecified Status: Acute Assessment and Plan: With plan for coronary angiogram, SCDs. Time Spent With Patient Time with patient: 15 - 25 minutes Subjective Date/time seen: 09/10/19 08:59 Interval history: Date of Service: 09/10/2019. Admitted with chest pain. Doing well this morning. Denies chest pain. No shortness of breath. No abdominal pain. No headache or dizziness. Ready for cardiac catheterization. Review of Systems Constitutional: Constitutional: Denies chills and Denies fever(s) ENT: Denies nasal congestion and Denies nasal discharge Cardiovascular: Cardiovascular: Denies chest pain and Denies lightheadedness Respiratory: Respiratory: Denies cough and Denies dyspnea Gastrointestinal: Gastrointestinal: Denies abdominal pain, Denies constipation, Denies heartburn, Denies nausea and Denies vomiting Genitourinary: Genitourinary: Reports no additional male genitourinary complaints Musculoskeletal: Musculoskeletal: Reports no additional musculoskeletal complaints Integumentary/Breasts: Skin/Breast: Denies rash Neurologic: Denies headache(s) Psychiatric: Psychiatric: Denies anxiety and Denies depression Exam Narrative: Exam Narrative: Awake and alert. Const: General: no acute distress HENMT: Mouth: Yes moist mucous membranes Neck: Neck: supple Lymphatic: lymphadenopathy not noted Resp: Auscultation: clear to auscultation bilaterally, no rales and no wheezes Cardio: Rate: regular rate Rhythm: regular rhythm GI: Inspection: non-distended GI Palp: Yes Soft to palpation and No Tenderness to palpation present (GI) Auscultation: normal bowel sounds Skin: General skin exam: no rashes or lesions noted Neuro: Cognition (Neuro): normal cognition Speech: normal speech Extrem: General: no edema Psych: Mental Status: mental status grossly normal Affect: normal affect Objective Data Vital Signs Vital Signs: Vital Signs - 24 hr 09/09/19 10:00 09/09/19 10:20 09/09/19 12:00 Temperature 97.6 F Pu
--- NOTE | 2019-09-10 08:59 | WPDMODSED ---
Moderate Sedation Note-Pt Data Patient Data Diagnosis: 64-year-old patient with the history of hypertension and previous DVT/PE. Admitted last week with intermittent chest pain concerning for myocardial ischemia. Catheterization was recommended but had to be delayed as he was withdrawn from systemic anticoagulation. Electrocardiogram and troponins have been unremarkable Present Complaint: intermittent shortness of breath / chest pain for several weeks Procedure to be performed/Plan: left heart catheterization Allergies Allergy/AdvReac Type Severity Reaction Status Date / Time No Known Allergies Allergy Verified 09/06/19 19:47 Home Medications Medication Instructions Recorded Confirmed Type apixaban 5 mg tablet 5 mg PO BID 04/30/19 09/06/19 History aspirin 81 mg tablet,delayed 81 mg PO DAILY 04/30/19 09/06/19 History release amlodipine 10 mg tablet 10 mg PO DAILY #90 tablet 05/15/19 09/06/19 Rx hydrochlorothiazide 12.5 mg tablet 12.5 mg PO DAILY #90 tablet 05/31/19 09/06/19 Rx ergocalciferol (vitamin D2) 2,000 unit PO DAILY 09/06/19 09/06/19 History Current Medications: Active Medications Amlodipine Besylate (Norvasc) 10 mg PO DAILY [facility] Last Admin: 09/09/19 10:20 Dose: 10 mg Documented by: Aspirin (Aspirin Ec) 81 mg PO DAILY [facility] Last Admin: 09/09/19 10:20 Dose: 81 mg Documented by: Bisacodyl (Dulcolax Tab) 5 mg PO QAM PRN PRN Reason: Constipation Last Admin: 09/08/19 14:53 Dose: 5 mg Documented by: Hydrochlorothiazide (Hydrochlorothiazide) 12.5 mg PO DAILY [facility] Last Admin: 09/09/19 10:20 Dose: 12.5 mg Documented by: Metoprolol Tartrate (Lopressor) 12.5 mg PO Q12HR [facility] Last Admin: 09/09/19 20:27 Dose: 12.5 mg Documented by: Polyethylene Glycol (Miralax) 17 gm PO QAM [facility] Last Admin: 09/09/19 10:24 Dose: 17 gm Documented by: Vitamin D (Vitamin D) 2,000 unit PO DAILY [facility] Stop: 10/07/19 09:01 Last Admin: 09/09/19 10:21 Dose: 2,000 unit Documented by: Sedation/Anesthesia: No previous sedation/anesthesia problems (including family history). 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 History of pulmonary embolism Hypertension Post-traumatic arthritis of left ankle Recurrent deep vein thrombosis (DVT) Sleep disorder Spinal cord stimulator status Surgical History Surgical History (Updated 09/06/19 @ 22:49 by Zoe Zayas PA-C) History of lumbar fusion History of open reduction and internal fixation (ORIF) procedure Left ankle. Status post cervical spinal fusion Family History Family History (Updated 09/06/19 @ 22:49 by Zoe Zayas PA-C) Sibling Acute myocardial infarction at age 55. Mother Family history of malignant neoplasm, Onset Age: 50 Other Heart disease Social History Social History (Updated 09/06/19 @ 22:50 by Zoe Zayas PA-C) Social History: The patient lives with his on [address] acres outside of [place], [place]. They have identical twin sons, who were adopted 33 years ago. He is a lifelong nonsmoker and denies alcohol and drug abuse. He has recently retired. He designates his , Annie, as his surrogate decision maker and he wishes to be a full code. Spiritual care concerns: Yes (Muslim) Agree to blood products: Yes Mod Sed Physical Exam Physical Exam Pre Procedural Exam: Normal: Neck, Throat, Airway, Lungs, Heart Size, Heart Rate, Heart Rhythm and Extremities and Variation: Appearance ( overweight white male in no apparent distress) Hours since solid foods: 12 Hours since liquid intake: 12 Internal Medicine - PN: Obj Da Vital Signs Vital Signs: Vital Signs - 24 hr 09/09/19 10:00
--- NOTE | 2019-09-10 09:35 | WPDCARDPROC ---
Cardiac Cath Procedure Note Date of procedure:: 09/10/19 Performing physician:: Josh Gipson MD Indication:: 64-year-old man with a history of intermittent chest pain for 2-3 weeks prompting admission last week. Acute coronary syndrome has been ruled out. In this setting catheterization was recommended to rule out Significant obstructive CAD. The patient was in the hospital for several days because of the need to withdraw systemic anticoagulation prior to angiography. Brief clinical history:: As detailed above Procedure Procedure performed:: left heart catheterization with left ventriculography and coronary angiography Sedation/Medication given:: fentanyl 50 mg Versed 2 mg case start time 9:13 a.m. case end time 9:31 a.m. sedation provided by Grace Gee RN, trained observer Access site:: right femoral artery Estimated blood loss:: 15-20 cc Procedure note:: patient brought to catheterization lab in the postabsorptive state the right femoral triangle was prepared in normal fashion. Anesthesia was provided with 1% lidocaine infiltrated locally. Using modified Seldinger technique a 5 Uzbek sheath was placed into the femoral artery after this left heart catheterization was carried out. A 5 Uzbek angled pigtail catheter was used to perform a left ventriculogram and document left-sided hemodynamics. Following this the pigtail catheter was withdrawn in a 5 Uzbek FL4 catheter was used to engage inject the left coronary artery in multiple projections. After this a 5 Uzbek JR4 catheter was used to engage inject the right coronary artery. Catheter exchanges were done over a guidewire since there was some degree of iliofemoral atherosclerosis. Following this the case was terminated the patient was taken to the holding area for manual sheath removal. I performed angiogram of the femoral artery through the sheath and elected to not deploy an Angio-Seal device because of atherosclerosis with calcific plaques in the common femoral artery. Findings:: central aortic pressure is 160/84 left ventricle 160 over 2 end-diastolic pressure 14 there is no gradient on pullback across the aortic valve. the left ventricle is normal in size all segments contract appropriately there were no wall motion abnormalities the ejection fraction is 60-65% by visual estimation The left main coronary artery is medium in caliber and widely patent the LAD is a medium caliber artery it is somewhat tortuous with modest luminal irregularities but there are no significant atherosclerotic stenoses. Circumflex is a large caliber vessel with about 40% stenosis in these trunk of the circumflex prior to the major marginal branch. There do not appear to be any flow-limiting lesions in the circumflex right coronary artery is medium in caliber is dominant to the posterior circulation and has a proximal arellano's crook deformity. The RCA has no significant lesions. The arellano's crook region of the proximal RCA has no more than 20-30% stenosis. There do not appear to be any flow-limiting lesions in the RCA Conclusion:: angiographically modest, nonocclusive coronary artery disease as detailed above normal left ventricular systolic function evidence of peripheral vascular disease in the common femoral and iliac artery per noted on angiogram through the sheath chest pain symptoms/ dyspnea do not appear to be mediated by myocardial ischemia based on these findings Josh Gipson MD [facility]
[2019-09-10] MEDS: ASPIRIN 81 MG ENTERIC TABLET PO (11:43)
[2019-09-10] MEDS: hydroCHLOROthiazide 12.5 MG CAPSULE PO (11:43)
[2019-09-10] MEDS: AMLODIPINE BESYLATE 5 MG TABLET 10 MG PO (11:43)
[2019-09-10] MEDS: METOPROLOL TARTRATE 12.5 MG TABLET PO (11:43)
[2019-09-10] MEDS: CHOLECALCIFEROL 1,000 UNIT TABLET 2000 UNITS PO (11:43)
[2019-09-10] MEDS: SODIUM CHLORIDE 0.9% IV 1,000 ML 125 ML IV CONT (11:44)
--- NOTE | 2019-09-10 15:40 | PM.DS ---
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 Hospital Course: Date of Service of Discharge: September 10, 2019. 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 This was associated with diaphoresis and lightheadedness. He reports resting for short period of time before finishing the job. His symptoms did improve but were fairly constant throughout the evening. During the carpentry work, he was using a jigsaw and electric maggie. He reports waking up on the morning of presentation and simply walking around his home with symptoms returning. He reports having similar symptoms over the past month or so intermittently which he attributed to simply being out of shape. No history of coronary artery disease. He did have a stress test 4 years ago for evaluation of palpitations which was unremarkable. There is a family history of early-onset heart disease with 1 of his brothers passing away from an ME at age 55. No heartburn or dysphagia. No nausea or vomiting. No recent fever. Given his findings, he was admitted for further evaluation and treatment. Course in Hospital: On admission, patient was placed in the IMU where he remained for the duration of his stay. Cardiology was consulted given his risk factors and symptomatology. Serial troponin levels were negative. EKG with no acute changes. Telemetry revealed sinus rhythm throughout his stay. For consultation with Cardiology, he was felt appropriate for cardiac catheterization for additional evaluation. Given the fact he does take Eliquis for history of clotting issues and patient not with ACS, it was felt prudent to hold Eliquis allowing for washout of anticoagulation effects and then proceed with cardiac catheterization. As result, cardiac catheterization was scheduled for Tuesday, September 10, 2019 allow for appropriate time off of Eliquis. He only had 1 episode of shortness of breath with palpitations during that time and none in the 24 hours prior to cardiac catheterization. Patient was taken to the cardiac catheterization lab on the morning of September 10, 2019. Cardiac catheterization revealed 60-65%, modest luminal irregularities with no significant atherosclerotic stenoses in the LAD and 40% stenosis in trunk of the circumflex prior to the major marginal branch with no flow-limiting lesions. No significant lesions in the RCA. Patient had been placed on metoprolol on admission given his findings. With the cardiac catheterization results, metoprolol discontinued and no other additional cardiac medications required with patient to resume his Eliquis per cardiology directions. During his stay, his blood pressure was monitored and remained stable on amlodipine, hydrochlorothiazide as well as the metoprolol. He did also continue aspirin 81 mg daily. He had no other acute issues.
== END 2019-09-10 16:38 | disposition home or self-care (01) | DRG 287 ==
LOC: ANHED 17:20 → ANHIMU 18:52
PROVIDERS: Emergency Medicine; Specialist; Admitting Provider Hospitalist; Emergency Provider Emergency Medicine; PCP Internal Medicine; Visit Provider Hospitalist
PROC: 4A023N7 Measurement of Cardiac Sampling and Pressure, Left Heart, Percutaneous Approach (ICD-10-PCS; CPT 93452; principal; 2019-09-10 08:30)
DX: I25.10 Atherosclerotic heart disease of native coronary artery without angina pectoris (principal); I69.354 Hemiplegia and hemiparesis following cerebral infarction affecting left non-dominant side; I10 Essential (primary) hypertension; I73.9 Peripheral vascular disease, unspecified; I69.322 Dysarthria following cerebral infarction; Z86.711 Personal history of pulmonary embolism; Z86.718 Personal history of other venous thrombosis and embolism; Z98.1 Arthrodesis status; Z79.01 Long term (current) use of anticoagulants; Z79.82 Long term (current) use of aspirin; M12.572 Traumatic arthropathy, left ankle and foot
CPT/HCPCS: 36415; 71275; 80048; 80053; 80061; 83880; 84484; 85025; 85610; 85730; 93005; 93458; 99285; A9270; C1887; C1894; G0378; J1644; J2250; J3010; J7030; J7040; Q9967

== ENCOUNTER → 2020-08-08 10:04 | Outpatient (CLI) | payer MEDICARE, SELFPAY ==
--- NOTE | ~2020-08-08 | XR_ITS ---
XR hip BI 2V w AP pelvis DATE: 08/08/2020 10:52 INDICATION: Right hip pain TECHNIQUE: AP pelvis. AP and lateral views of each hip. COMPARISON: 09/09/2016 left and right hip FINDINGS: A battery pack overlies the right gluteal area. Status post posterior spinal fusion at L4-5 by means of pedicle screws and rods. Diffuse osteopenia. Normal alignment at the pubic symphysis and sacroiliac joints. No pelvic fracture or bone destruction is evident. No fracture or dislocation, avascular necrosis or bone destruction of either hip is evident. Hip join t spaces are symmetric and relatively preserved. Extensive calcification of the abdominal aorta and iliac and femoral arteries. IMPRESSION: Osteopenia Status post L4-5 posterior spinal fusion Reviewed, dictated and finalized at location B. NING ENGINEER
== END ==
PROVIDERS: PCP Internal Medicine; Visit Provider Internal Medicine
DX: M25.551 Pain in right hip (principal); M25.552 Pain in left hip; M85.89 Other specified disorders of bone density and structure, multiple sites; Z98.1 Arthrodesis status
CPT/HCPCS: 73521

== ENCOUNTER 2020-09-18 13:28 | Outpatient (CLI) | payer MEDICARE, SELFPAY ==
--- NOTE | ~2020-09-18 | CT_ITS ---
EXAMINATION: CTA abd aorta runoff EXAM DATE: 09/18/2020 14:22 INDICATION: I73.9 - Peripheral vascular disease, unspecified. Decreased ankle brachial indices bilate rally. TECHNIQUE: Spiral CTA abd aorta runoff was performed following intravenous injection of 150 mL Omnipa que 350. Axial, coronal and sagittal images were reviewed. Maximum intensity projection 3-D reconstr uctions of the arteries were created by the technologist on dedicated workstation. The dose-length product (DLP) for this examination was 1645.18 mGy-cm. The exposure was tailored according to patie nt size (auto mA exposure control), and iterative reconstruction (ASIR) was used as additional dose r eduction technique. There is no prior study for comparison. FINDINGS: ARTERIES: There is moderate aortoiliac arterial sclerosis. Probably moderate narrowing of the right r enal artery origin. Moderate narrowing of the celiac origin. Right side: Moderate common and external iliac arterial sclerosis, with short segment region of moder ate external iliac stenosis indicated on axial image 145. Moderate scattered superficial femoral dax rial sclerosis with several regions of moderate stenosis suspected at the mid aspect. Bilateral trifu rcation arterial sclerosis, but with 3 vessel runoff to the foot. Left side: There is moderate common and external iliac arterial sclerosis, short segment moderate ext ernal iliac stenosis indicated on axial image 147. Moderate scattered superficial femoral arterial sc lerosis with multiple regions of mild to moderate stenosis. Trifurcation arteriosclerosis, but 3 vess el runoff is identified to the foot. INCIDENTAL FINDINGS: Hepatic steatosis. Solid organs otherwise unremarkable. Prostate and bladder unr emarkable. Tiny appendicolith. Mild scattered colonic diverticulosis. No acute intra-abdominal findin gs or lymphadenopathy. Spine stimulator. L5-S1 fusion. Left medial malleolar, tibial plafond and hard conner and moderate left ankle osteoarthritis probably secondary to trauma. IMPRESSION: 1. Moderate scattered arterial sclerosis, but with 3 vessel runoff to the feet bilaterally. 2. Mild colonic diverticulosis. 3. Hepatic steatosis. Reviewed, dictated and finalized at location A.
[2020-09-18 14:02] LABS: Estimated Glomerular Filt Rate > 60
== END 2020-09-18 13:29 | disposition home or self-care (01) ==
PROVIDERS: PCP Internal Medicine; Visit Provider Internal Medicine
DX: I70.203 Unspecified atherosclerosis of native arteries of extremities, bilateral legs (principal); K57.30 Diverticulosis of large intestine without perforation or abscess without bleeding; Z98.1 Arthrodesis status; I77.1 Stricture of artery; K76.0 Fatty (change of) liver, not elsewhere classified
CPT/HCPCS: 75635; Q9967

== ENCOUNTER 2021-05-06 11:07 | Outpatient (CLI) | payer MEDICARE, SELFPAY ==
--- NOTE | ~2021-05-06 | US_ITS ---
EXAMINATION: US venous doppler LE RT DATE: 05/06/2021 11:46 INDICATION: Right calf pain. TECHNIQUE: Grayscale ultrasound images without and with compression and Doppler ultrasound images of the right lower extremity veins were obtained. COMPARISON: Ultrasound 08/22/2017 FINDINGS: The visualized portions of right common femoral vein, profunda (deep) femoral vein, femoral vein, pop liteal vein, peroneal veins, posterior tibial veins, and greater saphenous vein outflow are patent. IMPRESSION: 1. No deep venous thrombosis. Reviewed, dictated and finalized at location A. CRUSHER
== END 2021-05-06 11:08 | disposition home or self-care (01) ==
PROVIDERS: PCP Internal Medicine; Visit Provider Orthopaedic Surgery Adult Reconstructive Orthopaedic Surgery
DX: M79.661 Pain in right lower leg (principal)
CPT/HCPCS: 93971

== ENCOUNTER 2021-06-04 10:01 | Outpatient (CLI) | payer MEDICARE, SELFPAY ==
--- NOTE | ~2021-06-04 | US_ITS ---
EXAMINATION: US soft tissue groin RT EXAM DATE: 06/04/2021 10:42 INDICATION: M76.62 -right inguinal bulge, rule out hernia. TECHNIQUE: Multiple grayscale and Doppler images of the right inguinal region. were obtained (by a te chnologist who performed the scan) and subsequently reviewed. Correlation made to CT abdomen pelvis 09/18/2020 FINDINGS: Scanning in the area of clinical concern demonstrates several lymph nodes which are within normal siz e limits. No inguinal hernia or suspicious findings. IMPRESSION: 1. Unremarkable ultrasound exam. Reviewed, dictated and finalized at location B. BUSINESS PROFESSOR
== END 2021-06-04 10:02 | disposition home or self-care (01) ==
LOC: ANHIMG 10:05
PROVIDERS: PCP Internal Medicine; Visit Provider Nurse Practitioner
DX: M76.62 Achilles tendinitis, left leg (principal); R10.30 Lower abdominal pain, unspecified
CPT/HCPCS: 76882

== ENCOUNTER 2021-08-27 08:56 | Outpatient (CLI) | payer MEDICARE, SELFPAY ==
--- NOTE | ~2021-08-27 | US_ITS ---
EXAMINATION: US abdomen limited EXAM DATE: 08/27/2021 09:47 INDICATION: R74.8 - Abnormal levels of other serum enzymes TECHNIQUE: Multiple grayscale and Doppler images of the abdomen right upper quadrant were obtained (b y a technologist who performed the scan) and subsequently reviewed. Comparison is made to prior exami nation from 05/19/2018. FINDINGS: The pancreatic head and body are normal in appearance. The pancreatic tail is not visualized. There is echogenic liver parenchyma, hepatic steatosis. There are no focal liver lesions identified. Th ere is no evidence of intrahepatic biliary duct dilation. Portal venous flow was seen in the hepatop edal, normal direction and has normal Doppler waveform. No right-sided hydronephrosis. Common bile duct measures 5 mm, which is normal. The gallbladder wall is normal in thickness, with ex pected amount of distention. No sonographic evidence of pericholecystic fluid. There is no cholelit hiases. Technologist performing exam reports patient did not demonstrate sonographic Rubi's sign. Please note that this sign is less reliable in patients who have received pain medication. IMPRESSION: Hepatic steatosis. Reviewed, dictated and finalized at location A. PULLER IMPRESSION: Hepatic steatosis.
== END 2021-08-27 08:57 | disposition home or self-care (01) ==
PROVIDERS: PCP Internal Medicine; Visit Provider Internal Medicine
DX: R74.8 Abnormal levels of other serum enzymes (principal); K76.0 Fatty (change of) liver, not elsewhere classified
CPT/HCPCS: 76705

== ENCOUNTER 2022-11-04 15:39 | Emergency (ER) | payer MEDICARE, SELFPAY ==
--- NOTE | 2022-11-04 15:46 | ED.URI ---
HPI - URI/Sore Throat General Chief Complaint: Upper Respiratory Infection Stated Complaint: fever,sore throat (bit by tic) Time Seen by Provider: 11/04/22 16:10 Source: patient and RN notes reviewed Mode of arrival: ambulatory Limitations: no limitations History of Present Illness HPI Narrative: 67-year-old male presents with concern for tick bite, fever, sore throat, body aches. He reports he pulled a tick off of his right flank. He reports he developed a rash in that area. Reports he has started to feel ill with a very painful sore throat, painful swallowing, body aches, general malaise. He denies known sick contacts. Reports he tried taking multi symptom cold medicine without relief. He denies joint pain, difficulty swallowing MD elicited complaint: fever and sore throat Related Data Home Medications Medication Instructions Recorded Confirmed aspirin 81 mg tablet,delayed 81 mg PO DAILY 04/30/19 11/04/22 release (Adult Aspirin Regimen) ergocalciferol (vitamin D2) 50 mcg 2,000 unit PO DAILY 09/06/19 11/04/22 (2,000 unit) tablet ascorbic acid (vitamin C) 1,000 mg 1 gm PO DAILY 10/02/19 11/04/22 tablet Allergies Allergy/AdvReac Type Severity Reaction Status Date / Time No Known Allergies Allergy Verified 11/04/22 16:01 Review of Systems Review of Systems: CONSTITUTIONAL: Reports malaise, fever. EYES: Denies visual changes, redness, or discharge. ENT: Denies rhinorrhea, congestion, sinus pain, otalgia. Reports sore throat. CARDIOVASCULAR: Denies chest pain, palpitations, or edema. RESPIRATORY: Denies cough. Denies dyspnea. GASTROINTESTINAL: Denies abdominal pain, nausea, vomiting, diarrhea SKIN: Reports rash at the tick bite site MUSCULOSKELETAL: Reports myalgia. NEUROLOGIC: Denies headache. All systems reviewed & are unremarkable except as noted in HPI and below PMFSH Past Medical History Medical History Arthritis of left subtalar joint Bilateral hip pain Chronic anticoagulation Chronic back pain Coronary artery disease Current use of senior care anticoagulation CVA (cerebral vascular accident) At the age of 39, presenting with left hemiplegia and dysarthria without significant residual deficit. Hip pain History of pulmonary embolism Hypertension Post-traumatic arthritis of left ankle Recurrent deep vein thrombosis (DVT) Sleep disorder Spinal cord stimulator status Thoracic aortic aneurysm Surgical History Surgical History History of hip replacement left 07/23/2021 History of lumbar fusion History of open reduction and internal fixation (ORIF) procedure Left ankle. Status post cervical spinal fusion Family History Family History Sibling Acute myocardial infarction at age 55. Mother Family history of malignant neoplasm, Onset Age: 50 Other Heart disease Social History Social History Social History: The patient lives with his on [address] acres outside of [place], [place]. They have identical twin sons, who were adopted 33 years ago. He is a lifelong nonsmoker and denies alcohol and drug abuse. He has recently retired. He designates his , Annie, as his surrogate decision maker and he wishes to be a full code. Smoking status: Never smoker Alcohol intake: never Living arrangements: with family Occupation/Education: retired Gender identity (if verbalized by the patient): Male Spiritual care concerns: Yes (Orthodoxy) Agree to blood products: Yes Comments At time of signature, agree with nursing past medical, surgical, social and family history. There is no relevant family history pertinent to the presenting complaint Exam Narrative: GENERAL: Nontoxic appearing and in no acute distress. HEAD: Normocephalic
[2022-11-04 16:00] VITALS: BP 132/73; PULSE 99; RESP 16; TEMP 37; O2SAT 96
== END 2022-11-04 16:24 | disposition home or self-care (01) ==
PROVIDERS: Emergency Provider Nurse Practitioner; PCP Internal Medicine
DX: J02.9 Acute pharyngitis, unspecified (principal); S30.861A Insect bite (nonvenomous) of abdominal wall, initial encounter; W57.XXXA Bitten or stung by nonvenomous insect and other nonvenomous arthropods, initial encounter; Z20.822 Contact with and (suspected) exposure to COVID-19; I10 Essential (primary) hypertension; Z86.718 Personal history of other venous thrombosis and embolism; Z96.82 Presence of neurostimulator; I25.10 Atherosclerotic heart disease of native coronary artery without angina pectoris; Z86.73 Personal history of transient ischemic attack (TIA), and cerebral infarction without residual deficits; Z96.642 Presence of left artificial hip joint; Z79.82 Long term (current) use of aspirin
CPT/HCPCS: 87081; 87426; 87804; 87880; 99213; C9803; G0463

== ENCOUNTER 2022-11-05 11:20 | Emergency (ER) | payer MEDICARE, SELFPAY ==
[2022-11-05] VITALS (50 sets, daily range): BP systolic 116–146; BP diastolic 65–86; PULSE 68–94; RESP 11–24; O2SAT 88–98
--- NOTE | ~2022-11-05 | CT_ITS ---
EXAMINATION: CT soft tissue neck wo con DATE: 11/05/2022 12:56 INDICATION: Sore throat. Dysphagia. TECHNIQUE: Computed tomography (CT) of the neck was performed without intravenous contrast. Automated exposure control and iterative reconstruction technique were employed. The dose-length product was 5 01.05 mGy-cm. COMPARISON: Chest CT 09/06/2019 FINDINGS: There is mild emphysema. There is mild thickening of the epiglottis. There are no pathologi jc enlarged lymph nodes. There is calcified atherosclerosis of the cervical carotid arteries. Ther e is severe cervical spondylosis. There is interbody fusion at C5-C6. The mastoid air cells are carrie l. There is mucosal thickening in the paranasal sinuses. The orbits are normal. IMPRESSION: 1. Mild thickening of the epiglottis, consistent with inflammation. 2. Mild emphysema. Reviewed, dictated and finalized at location A.
[2022-11-05 13:46] LABS: Basophils Percent Auto 0.4 % (0.2-1.2); Eosinophils Absolute Auto 0.1 K/mm3 (0-0.3); Hematocrit 45.1 % (42.0-52.0); Hemoglobin 15.1 g/dL (14.0-18.0); Immature Granulocyte Absolute 0.02 K/mm3 (0.00-0.031); Immature Granulocyte Percent A 0.2 % (0-0.5); Lymphocytes Absolute Auto 1.54 K/mm3 (0.9-3.2); Lymphocytes Percent Auto 18.5 % (18.3-44.2); Mean Corpuscular HGB Conc 33.5 g/dl (32-36); Mean Corpuscular Hemoglobin 33.6 pg (26-34); Mean Corpuscular Volume 100.2 fl (80-100); Mean Platelet Volume 10.5 fl (7.4-10.4); Monocytes Absolute Auto 1.1 K/mm3 (0.1-0.6); Monocytes Percent Auto 13.5 % (2.6-8.5); Neutrophils Absolute Auto 5.5 K/mm3 (1.3-6.7); Neutrophils Percent Auto 66.4 % (45.5-73.1); Platelet Count Result 210 k/mm3 (150-375); Red Cell Distribution Width 14.3 % (11.5-14.5); White Blood Count 8.3 K/mm3 (4.5-10.0)
[2022-11-05 13:59] LABS: Alanine Aminotransferase 31 U/L (6-50); Albumin Level 4.3 g/dL (3.5-5.1); Alkaline Phosphatase 72 U/L (38-126); Anion Gap 10 mmol/L (8-16); Aspartate Amino Transferase 20 U/L (17-59); Bilirubin,Total 1.1 mg/dL (0.2-1.3); Blood Urea Nitrogen 14 mg/dL (9-20); Carbon Dioxide 30 mmol/L (22-30); Chloride 98 mmol/L (98-107); Estimated Glomerular Filt Rate 60; Glucose 97 mg/dL (65-110); Potassium 3.9 mmol/L (3.4-5.0); Sodium 138 mmol/L (137-145)
[2022-11-05 14:01] LABS: INR 1.2; Prothrombin Time 15.4 Seconds (11.1-14.7)
--- NOTE | 2022-11-05 16:10 | PC.NURSE ---
Dr. Lamar in pt room at this time for bedside scope.
--- NOTE | 2022-11-05 16:34 | WPDPROCEDUR ---
Procedures Laryngoscopy Laryngoscopy Comments: bilateral nasal passages anesthetized with afrin and lidocaine. Flexible scope passed. Left septal deviation. Erythematous nasal passages. Mildly edematous tongue base an larynx. Mild if any edema. Pooling of secretions. No evidence of epiglottis. Airway is good.
--- NOTE | 2022-11-05 16:57 | WPDCN ---
Assessment and Plan Assessment and plan (1) Dysphagia: Code(s): R13.10 - Dysphagia, unspecified Status: Acute Assessment and Plan: Scope relatively carrie. Some post cricoid edema and secretion pooling. Airway relatively normal. No otolaryngologic cause for the patient's symptoms. [facility] Data of Consult Date/Time: 11/05/22 16:57 Primary Care Provider: Gerald Melendez, DO Consult Narrative Narrative: Valentino Graves is a 67 year old male with dysphagia. CT reviewed, some edematous tissue. No abscess. 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 Hip pain History of pulmonary embolism Hypertension Post-traumatic arthritis of left ankle Recurrent deep vein thrombosis (DVT) Sleep disorder Spinal cord stimulator status Thoracic aortic aneurysm Surgical History Surgical History History of hip replacement left 07/23/2021 History of lumbar fusion History of open reduction and internal fixation (ORIF) procedure Left ankle. Status post cervical spinal fusion Family History Family History Sibling Acute myocardial infarction at age 55. Mother Family history of malignant neoplasm, Onset Age: 50 Other Heart disease Social History Social History Social History: The patient lives with his on [address] acres outside of [place], [place]. They have identical twin sons, who were adopted 33 years ago. He is a lifelong nonsmoker and denies alcohol and drug abuse. He has recently retired. He designates his , Annie, as his surrogate decision maker and he wishes to be a full code. Smoking status: Never smoker Alcohol intake: never Living arrangements: with family Occupation/Education: retired Gender identity (if verbalized by the patient): Male Spiritual care concerns: Yes (Restorationism) Agree to blood products: Yes Meds Home Medications and Allergies Home Medications Medication Instructions Recorded Confirmed Type aspirin 81 mg tablet,delayed 81 mg PO DAILY 04/30/19 11/04/22 History release (Adult Aspirin Regimen) ergocalciferol (vitamin D2) 50 mcg 2,000 unit PO DAILY 09/06/19 11/04/22 History (2,000 unit) tablet ascorbic acid (vitamin C) 1,000 mg 1 gm PO DAILY 10/02/19 11/04/22 History tablet hydrochlorothiazide 12.5 mg tablet 12.5 mg PO DAILY #90 tabs 06/07/22 11/04/22 Rx amlodipine 10 mg tablet See Rx Instructions .Route 09/02/22 11/04/22 Rx .COMPLEX #30 tabs apixaban 5 mg tablet (Eliquis) See Rx Instructions .Route 09/02/22 11/04/22 Rx .COMPLEX #180 tabs atorvastatin 10 mg tablet 10 mg PO DAILY #90 tabs 09/02/22 11/04/22 Rx metoprolol succinate 25 mg 25 mg PO DAILY #90 tabs 09/02/22 11/04/22 Rx tablet,extended release 24 hr doxycycline monohydrate 100 mg 100 mg PO BID 10 days #20 tabs 11/04/22 Rx tablet lidocaine HCl 2 % mucosal solution 5 ml mucous membrane QID PRN pain 11/04/22 Rx (Lidocaine Viscous) #100 mL Allergies Allergy/AdvReac Type Severity Reaction Status Date / Time No Known Allergies Allergy Verified 11/05/22 11:28 Vital Signs Vital Signs - 24 hr 11/05/22 11:31 11/05/22 11:39 11/05/22 13:30 Pulse Rate 83 83 89 Respiratory Rate 18 18 Blood Pressure 133/83 134/76 Pulse Oximetry 96 97 11/05/22 12:30 11/05/22 14:00 11/05/22 15:15 Pulse Rate 81 84 68 Respiratory Ra
--- NOTE | 2022-11-05 17:55 | PC.NURSE ---
Spoke with [facility] transfer line. Per [facility] transfer line there is a 5-7 day waitlist for medical beds. They will call us back with any updates.
--- NOTE | 2022-11-05 18:04 | PC.NURSE ---
pt accepted to [facility], placed on pt bed waitlist. ETA 5-7 days
--- NOTE | 2022-11-05 19:15 | PC.NURSE ---
Report given to CARMELLA Velazquez
--- NOTE | 2022-11-05 19:21 | ED.GENADULT ---
HPI - General Adult General Chief complaint: Unspecified Stated complaint: tick bite 5 days ago-throat swelling Time Seen by Provider: 11/05/22 12:09 Source: patient and family Mode of arrival: ambulatory Limitations: no limitations History of Present Illness HPI narrative: 67-year-old with a history of PE on chronic anticoagulation here with complaints of unable to swallow since yesterday. Patient's states that he had a tick bite on his right flank area which she removed was seen in urgent care was started on antibiotic however since last night he is unable to swallow fluids this morning he woke up unable to swallow saliva or any liquids states that he has not taken any of his medication. Patient also states that he has been having sinus drainage for last several weeks. Onset (ago): day(s) (1) Severity: moderate Pain Consistency: constant Relieving factors: none Exacerbating factors: other (Eating and drinking) Associated symptoms: denies other symptoms Related Data Home Medications Medication Instructions Recorded Confirmed aspirin 81 mg tablet,delayed 81 mg PO DAILY 04/30/19 11/04/22 release (Adult Aspirin Regimen) ergocalciferol (vitamin D2) 50 mcg 2,000 unit PO DAILY 09/06/19 11/04/22 (2,000 unit) tablet ascorbic acid (vitamin C) 1,000 mg 1 gm PO DAILY 10/02/19 11/04/22 tablet Allergies Allergy/AdvReac Type Severity Reaction Status Date / Time No Known Allergies Allergy Verified 11/05/22 11:28 Review of Systems Review of Systems: All systems reviewed & are unremarkable except as noted in HPI and below Constitutional: Constitutional: Reports no additional constitutional complaints Eyes: Eyes: Reports no additional eye complaints ENT: Reports system reviewed and no additional complaints, except as documented Cardiovascular: Cardiovascular: Reports no additional cardiovascular complaints Respiratory: Respiratory: Reports no additional respiratory complaints Gastrointestinal: Gastrointestinal: Reports as per HPI Musculoskeletal: Musculoskeletal: Reports no additional musculoskeletal complaints Integumentary/Breasts: Skin/Breast: Reports system reviewed and no additional complaints, except as docu PMFSH Past Medical History Medical History Arthritis of left subtalar joint Bilateral hip pain Chronic anticoagulation Chronic back pain Coronary artery disease Current use of nursing home anticoagulation CVA (cerebral vascular accident) At the age of 39, presenting with left hemiplegia and dysarthria without significant residual deficit. Hip pain History of pulmonary embolism Hypertension Post-traumatic arthritis of left ankle Recurrent deep vein thrombosis (DVT) Sleep disorder Spinal cord stimulator status Thoracic aortic aneurysm Surgical History Surgical History History of hip replacement left 07/23/2021 History of lumbar fusion History of open reduction and internal fixation (ORIF) procedure Left ankle. Status post cervical spinal fusion Family History Family History Sibling Acute myocardial infarction at age 55. Mother Family history of malignant neoplasm, Onset Age: 50 Other Heart disease Social History Social History Social History: The patient lives with his on [address] acres outside of [place], [place]. They have identical twin sons, who were adopted 33 years ago. He is a lifelong nonsmoker and denies alcohol and drug abuse. He has recently retired. He designates his , Annie, as his surrogate decision maker and he wishes to be a full code. Smoking status: Never smoker Alcohol intake: never Living arrangements: with family Occupation/Education: retired Gender identity (if verbalized by the patient): Male Sp
[2022-11-06] VITALS (11 sets, daily range): BP systolic 155; BP diastolic 79; O2SAT 94–97
== END 2022-11-06 02:46 | disposition short-term general hospital (02) ==
LOC: ANHED 12:42
PROVIDERS: Emergency Provider Family Medicine; PCP Internal Medicine
DX: R13.10 Dysphagia, unspecified (principal); I25.10 Atherosclerotic heart disease of native coronary artery without angina pectoris; I10 Essential (primary) hypertension; G47.9 Sleep disorder, unspecified; Z86.73 Personal history of transient ischemic attack (TIA), and cerebral infarction without residual deficits; Z86.718 Personal history of other venous thrombosis and embolism; Z86.711 Personal history of pulmonary embolism; Z79.01 Long term (current) use of anticoagulants; Z79.82 Long term (current) use of aspirin; Z96.642 Presence of left artificial hip joint; Z98.1 Arthrodesis status; J43.9 Emphysema, unspecified
CPT/HCPCS: 31575; 36415; 70490; 80053; 85025; 85610; 96374; 99285; J1100

== ENCOUNTER → 2022-11-23 12:40 | Outpatient (CLI) | payer MEDICARE, SELFPAY ==
--- NOTE | ~2022-11-23 | CT_ITS ---
EXAMINATION: CT lumbar spine wo con DATE: 11/23/2022 13:04 INDICATION: Bilateral buttock pain. TECHNIQUE: Computed tomography (CT) of the lumbar spine was performed without intravenous contrast. A utomated exposure control and iterative reconstruction technique were employed. The dose-length produ ct was 924.56 mGy-cm. COMPARISON: None FINDINGS: There is calcified atherosclerosis of the aorta and many of the other arteries. Partially v isualized are epidural electrodes. There is 5 degrees levocurvature of lumbar spine. There is mild ch ronic anterior wedging of T12 vertebral body. There is mildly decreased disc height at L2-L3, moderat favian decreased disc height at L3-L4, and severely decreased disc height at L5-S1. There is are changes of posterior fusion procedure at L4-L5. There is severely decreased disc height at L4-L5 with interb danielle fusion. The following disc levels are specifically discussed: L1-L2: The disc is bulging. There is mild bilateral facet joint osteoarthritis. There is mild right a nd moderate left neural foraminal stenosis. There is mild central canal stenosis. L2-L3: The disc is bulging. There is severe right and moderate left facet joint osteoarthritis. There is moderate bilateral neural foraminal stenosis. There is mild central canal stenosis. L3-L4: The disc is bulging. There is severe bilateral facet joint osteoarthritis. There is moderate b ilateral neural foraminal stenosis. There is moderate central canal stenosis. L4-L5: There is mild right facet joint hypertrophy. There is mild bilateral neural foraminal stenosis with posterior decompression on the left. There is mild central canal stenosis with posterior decomp ression. L5-S1: The disc is bulging. There is severe bilateral facet joint osteoarthritis. There is mild bilat eral neural foraminal stenosis. There is mild central canal stenosis. IMPRESSION: 1. Severe lumbar spondylosis. 2. Posterior fusion procedure at L4-L5. Reviewed, dictated and finalized at location A.
== END ==
PROVIDERS: PCP Otolaryngology
DX: M47.816 Spondylosis without myelopathy or radiculopathy, lumbar region (principal)
CPT/HCPCS: 72131

== ENCOUNTER 2022-12-16 00:32 | Day surgery (SDC) | payer MEDICARE, SELFPAY ==
[2022-12-07 10:31] VITALS: BMI 33.0
--- NOTE | 2022-12-15 15:58 | PM.HPGS ---
History of Present Illness History of Present Illness Consent: Risks, benefits, and alternatives have been discussed and questions answered. Patient agrees to proceed with procedure. Chief complaint: dysphagia Narrative: Valentino Graves is a 67 year old male Who was ?seen in the ER at [facility] on 11/05/22. He had gotten bite by a tick while camping. 3 days later he developed a sore throat and was unable to swallow. He went to and they gave him Doxycycline and lidocaine swish and swallow. The next day it had gotten worse so he went to [facility] ER. They did a laryngoscopy and a neck CT. The laryngoscopy was done by Dr. Lamar, ENT. They gave him steroids and referred him to [facility] for a GI consult. By the time he got to [facility], his throat was significantly better. He was then discharged and no EGD was done. Although he feels better it still feels as though there is something there, in his throat. He states that he actually has had a discomfort, almost continuous, just to the left of the suprasternal notch. At times it will feel sharp. He was actually going to have an EGD to investigate this a few years ago but had to cancel it for some reason. He denies dysphagia, nausea, weight loss or other gastrointestinal symptoms. 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 Hip pain History of pulmonary embolism Hypertension Post-traumatic arthritis of left ankle Recurrent deep vein thrombosis (DVT) Sleep disorder Spinal cord stimulator status Thoracic aortic aneurysm Surgical History Surgical History History of hip replacement left 07/23/2021 History of lumbar fusion History of open reduction and internal fixation (ORIF) procedure Left ankle. Status post cervical spinal fusion Family History Family History Sibling Acute myocardial infarction at age 55. Mother Family history of malignant neoplasm, Onset Age: 50 Other Heart disease Social History Social History Social History: The patient lives with his on [address] acres outside of [place], [place]. They have identical twin sons, who were adopted 33 years ago. He is a lifelong nonsmoker and denies alcohol and drug abuse. He has recently retired. He designates his , Annie, as his surrogate decision maker and he wishes to be a full code. Smoking status: Never smoker Alcohol intake: never Substance use: never Living arrangements: with family Occupation/Education: retired Gender identity (if verbalized by the patient): Male Spiritual care concerns: No Agree to blood products: Yes Meds Home Medications and Allergies Home Medications Medication Instructions Recorded Confirmed Type aspirin 81 mg tablet,delayed 81 mg PO DAILY 04/30/19 12/16/22 History release (Adult Aspirin Regimen) ergocalciferol (vitamin D2) 50 mcg 2,000 unit PO DAILY 09/06/19 12/16/22 History (2,000 unit) tablet hydrochlorothiazide 12.5 mg tablet 12.5 mg PO DAILY #90 tabs 06/07/22 12/16/22 Rx atorvastatin 10 mg tablet 10 mg PO DAILY #90 tabs 09/02/22 12/16/22 Rx metoprolol succinate 25 mg 25 mg PO DAILY #90 tabs 09/02/22 12/16/22 Rx tablet,extended release 24 hr amlodipine 10 mg tablet 10 mg PO DAILY 12/07/22 12/16/22 History apixaban 5 mg tablet (Eliquis) 5 mg PO BID 12/07/22 12/16/22 History Allergies Allergy/AdvReac Ty
[2022-12-16 08:33] VITALS: BP 146/82; PULSE 73; RESP 20; TEMP 36.3; O2SAT 97
[2022-12-16] MEDS: LACTATED RINGERS 1,000 ML 150 ML IV CONT (08:43)
--- NOTE | 2022-12-16 09:13 | WPDANESEPPF ---
Anes - Initial Pre Proc Eval Procedure: Operation Date: 12/16/22 09:30 Proposed Procedures p Esophagogastroduodenoscopy - Aris Jensen MD Date/Time: 12/16/22 09:13 Surgeon: Aris Jensen MD Pre Op Diagnosis: dysphagia Patient Data Age: 67 Gender: M Height: 1.78 m Weight: 109.3 kg Last Vital Signs Temp 97.3 F L 12/16/22 08:33 Pulse 73 12/16/22 08:33 Resp 20 12/16/22 08:33 BP 146/82 H 12/16/22 08:33 Pulse Ox 97 12/16/22 08:33 O2 Del Method Room Air 12/16/22 08:33 Allergies Allergy/AdvReac Type Severity Reaction Status Date / Time No Known Allergies Allergy Verified 12/16/22 08:29 Home Medications Medication Instructions Recorded Confirmed Type aspirin 81 mg tablet,delayed 81 mg PO DAILY 04/30/19 12/16/22 History release (Adult Aspirin Regimen) ergocalciferol (vitamin D2) 50 mcg 2,000 unit PO DAILY 09/06/19 12/16/22 History (2,000 unit) tablet hydrochlorothiazide 12.5 mg tablet 12.5 mg PO DAILY #90 tabs 06/07/22 12/16/22 Rx atorvastatin 10 mg tablet 10 mg PO DAILY #90 tabs 09/02/22 12/16/22 Rx metoprolol succinate 25 mg 25 mg PO DAILY #90 tabs 09/02/22 12/16/22 Rx tablet,extended release 24 hr amlodipine 10 mg tablet 10 mg PO DAILY 12/07/22 12/16/22 History apixaban 5 mg tablet (Eliquis) 5 mg PO BID 12/07/22 12/16/22 History Patient hx anesthesia problems: none Family hx anesthesia problems: none Results Review: All pre-operative results and documents have been reviewed as part of the pre-operative evaluation. 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 Hip pain History of pulmonary embolism Hypertension Post-traumatic arthritis of left ankle Recurrent deep vein thrombosis (DVT) Sleep disorder Spinal cord stimulator status Thoracic aortic aneurysm Surgical History Surgical History History of hip replacement left 07/23/2021 History of lumbar fusion History of open reduction and internal fixation (ORIF) procedure Left ankle. Status post cervical spinal fusion Family History Family History Sibling Acute myocardial infarction at age 55. Mother Family history of malignant neoplasm, Onset Age: 50 Other Heart disease Social History Social History Social History: The patient lives with his on [address] acres outside of [place], [place]. They have identical twin sons, who were adopted 33 years ago. He is a lifelong nonsmoker and denies alcohol and drug abuse. He has recently retired. He designates his , Annie, as his surrogate decision maker and he wishes to be a full code. Smoking status: Never smoker Alcohol intake: never Substance use: never Living arrangements: with family Occupation/Education: retired Gender identity (if verbalized by the patient): Male Spiritual care concerns: No Agree to blood products: Yes Anes - Eval Final PreProcedure Day of Procedure 12/16/22 09:13 Patient weight: obese Heart: regular rate and rhythm Lungs: clear to auscultation Airway: Mallampati scale class II Neurological: alert and oriented Last oral intake: >/= 8 hours ASA classification: III Emergent: no Anesthetic plan: proceed Anesthesia type and monitoring: general Results Review: All pre-operative results and documents have been reviewed as part of the pre-operative evaluation. Informed Consent: The patient's anesthetic plan and its attendant risks and benefits were discussed with the
[2022-12-16 09:44] VITALS: BP 134/78; PULSE 71; RESP 16; O2SAT 97
[2022-12-16 09:54] VITALS: BP 141/80; PULSE 64; RESP 15; O2SAT 95
[2022-12-16 10:04] VITALS: BP 145/80; PULSE 62; RESP 17; O2SAT 96
== END 2022-12-16 10:16 | disposition home or self-care (01) ==
PROVIDERS: PCP Internal Medicine; Visit Provider Internal Medicine Gastroenterology
PROC: 0DJ08ZZ Inspection of Upper Intestinal Tract, Via Natural or Artificial Opening Endoscopic (ICD-10-PCS; CPT 43235; principal; 2022-12-16 09:30)
DX: K22.70 Barrett's esophagus without dysplasia (principal); K21.00 Gastro-esophageal reflux disease with esophagitis, without bleeding; I25.10 Atherosclerotic heart disease of native coronary artery without angina pectoris; I10 Essential (primary) hypertension; I71.20 Thoracic aortic aneurysm, without rupture, unspecified; Z86.718 Personal history of other venous thrombosis and embolism; Z86.711 Personal history of pulmonary embolism; Z98.1 Arthrodesis status; Z79.01 Long term (current) use of anticoagulants; Z86.73 Personal history of transient ischemic attack (TIA), and cerebral infarction without residual deficits; Z79.82 Long term (current) use of aspirin; E66.9 Obesity, unspecified; Z68.34 Body mass index [BMI] 34.0-34.9, adult
CPT/HCPCS: 43239; 88305; J2704; J7120

== ENCOUNTER 2023-03-30 08:35 | Outpatient (CLI) | payer MEDICARE, SELFPAY ==
--- NOTE | 2023-04-08 17:29 | WPDSLEEPSTUD ---
Sleep Study Date of Study: 03/30/23 Ordering Provider: Daren Gusman M.D. Interpreting Physician: Loreto Rivas DO Sleep Study Type: Split Polysomnogram Height: 1.78 m Weight: 108.862 kg Body Mass Index: 34.4 Neck Circumference (inches): 18 [place]: 6 Reason for Sleep Study Snoring, unrefreshing sleep, daytime hypersomnia Sleep History The patient is a 59 male that had a sleep study ordered by his ENT physician for evaluation of sleep apnea. The patient rarely awakens from sleep short of breath. He rarely awakens at night with heartburn, belching or cough. He frequently snores and is occasionally loud enough that others complain. He rarely has trouble sleeping when he has a cold. He rarely wakes up gasping for air throughout the night. He rarely has breathing problems at night observed by himself or others. He rarely sweats excessively at night. He occasionally has heart palpitations or irregular heartbeats during the night. He occasionally falls asleep during the day but never while driving. He occasionally experiences loss of muscle tone when extremely emotional. He rarely has trouble at school or work due to sleepiness. He rarely feels unable to move waking up or falling asleep. He frequently experiences vivid dreamlike scenes upon awakening or falling asleep. He frequently feels afraid going to sleep. He constantly has nightmares. He rarely remembers his dreams. He constantly has thoughts racing through his mind. He occasionally feels sad, depressed and anxious. He occasionally has muscular tension. He occasionally notices parts of his body jerk. He constantly kicks during the night. He occasionally has crawling and aching feelings in his legs and occasionally has leg pain during the night. He occasionally grinds his teeth during sleep but never awakens with morning jaw pain. He is constantly bothered by pain during the day occasionally awakened by pain during the night. He rarely wakes up feeling stiff in morning. He occasionally wakes up with sore or achy muscles. He occasionally wakes up with pain in the neck, spine or other joints. He goes to bed at 10:30 p.m. on both weekdays and weekends. It takes him 1 hour to fall asleep. He wakes up 10 times throughout the night for unknown reasons but is able to fall back asleep within 10 minutes. He wakes up at 7:00 a.m. on both weekdays and weekends. He typically gets 4-5 hours of sleep per night. He does not stay in bed after waking up in the morning. He currently lives with his . He denies consuming caffeinated beverages within 2 hours of bedtime. He denies engaging in physical exercise before bedtime. He will read and watch television before falling asleep. He will take naps in the afternoon or the evening and they are refreshing. He consumes 2 cups of caffeinated beverage per day. He denies tobacco, alcohol and recreational drug use. 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 Hip pain History of pulmonary embolism Hypertension Post-traumatic arthritis of left ankle Recurrent deep vein thrombosis (DVT) Sleep disorder Spinal cord stimulator status Thoracic aortic aneurysm Surgical History Surgical History History of hip replacement left 07/23/2021 History of lumbar fusion History of open reduction and internal fixation (ORIF) procedure Left ankle. Status post cervical spinal fusion Family History Family History Sibling Acute myocardial infarction Dec
[2023-04-08 17:35] VITALS: BMI 34.4
== END 2023-03-31 06:56 | disposition home or self-care (01) ==
LOC: ANHCSM 08:36
PROVIDERS: PCP Internal Medicine; Visit Provider Otolaryngology
DX: G47.33 Obstructive sleep apnea (adult) (pediatric) (principal); G47.61 Periodic limb movement disorder; I10 Essential (primary) hypertension; Z86.711 Personal history of pulmonary embolism; I25.10 Atherosclerotic heart disease of native coronary artery without angina pectoris; Z79.01 Long term (current) use of anticoagulants; Z96.642 Presence of left artificial hip joint
CPT/HCPCS: 95811

== ENCOUNTER → 2023-05-02 09:15 | Outpatient (CLI) | payer MEDICARE, SELFPAY ==
--- NOTE | ~2023-05-02 | CT_ITS ---
EXAMINATION: CT soft tissue neck w con DATE: 05/02/2023 09:48 INDICATION: Mass in left hypopharynx. Sore throat. TECHNIQUE: Computed tomography (CT) of the neck was performed with 75 mL Omnipaque-350 intravenous co ntrast. Automated exposure control and iterative reconstruction technique were employed. The dose-galdino gth product was 461.42 mGy-cm. COMPARISON: Neck CT 11/05/2022 FINDINGS: There is mild emphysema. There are calcifications in the palatine tonsils. No abscess. Ther e is plaque in the proximal internal carotid arteries with less than 50% stenosis relative to normal distal artery lumen diameters. There are no pathologically enlarged lymph nodes. There is mucosal thi ckening in the paranasal sinuses. The orbits are normal. The mastoid air cells are normal. There is s evere cervical spondylosis. IMPRESSION: 1. No abscess or specific evidence of malignancy. 2. Mild emphysema. Reviewed, dictated and finalized at location A. CT CONTROL INSPECTOR
[2023-05-02 09:37] LABS: Estimated Glomerular Filt Rate 60
== END ==
PROVIDERS: PCP Otolaryngology; Visit Provider Otolaryngology
DX: Z79.01 Long term (current) use of anticoagulants (principal); R22.1 Localized swelling, mass and lump, neck; J43.9 Emphysema, unspecified
CPT/HCPCS: 70491; Q9967

== ENCOUNTER 2024-06-08 08:21 | Outpatient (CLI) | payer MEDICARE, SELFPAY ==
[2024-06-08 18:12] LABS: Basophils Percent Auto 0.8 % (0.2-1.2); Eosinophils Absolute Auto 0.3 K/mm3 (0-0.3); Eosinophils Percent Auto 4.9 % (0-4.4); Hematocrit 44.6 % (42.0-52.0); Hemoglobin 14.7 g/dL (14.0-18.0); Immature Granulocyte Absolute 0.01 K/mm3 (0.00-0.031); Immature Granulocyte Percent A 0.2 % (0-0.5); Lymphocytes Absolute Auto 1.29 K/mm3 (0.9-3.2); Mean Corpuscular Hemoglobin 33.6 pg (26-34); Mean Corpuscular Volume 102.1 fl (80-100); Mean Platelet Volume 11.5 fl (7.4-10.4); Monocytes Absolute Auto 0.5 K/mm3 (0.1-0.6); Monocytes Percent Auto 9.9 % (2.6-8.5); Neutrophils Absolute Auto 3.1 K/mm3 (1.3-6.7); Neutrophils Percent Auto 59.2 % (45.5-73.1); Platelet Count Result 234 k/mm3 (150-375); Red Blood Count 4.37 M/mm3 (4.6-6.20); White Blood Count 5.2 K/mm3 (4.5-10.0)
[2024-06-08 18:18] LABS: Alanine Aminotransferase 56 U/L (6-50); Albumin Level 4.4 g/dL (3.5-5.1); Alkaline Phosphatase 87 U/L (38-126); Anion Gap 6 mmol/L (4-12); Aspartate Amino Transferase 136 U/L (17-59); Bilirubin,Total 0.9 mg/dL (0.2-1.3); Blood Urea Nitrogen 15 mg/dL (9-20); Calcium 9.2 mg/dL (8.4-10.2); Carbon Dioxide 31 mmol/L (22-30); Chloride 101 mmol/L (98-107); Cholesterol 99 mg/dL (0-200); Estimated Glomerular Filt Rate 60; Glucose 83 mg/dL (65-110); HDL Direct 26 mg/dL; Sodium 138 mmol/L (137-145); Triglycerides 91 mg/dL (<150)
[2024-06-08 18:30] LABS: LDL Cholesterol Direct 36 mg/dL
[2024-06-08 18:49] LABS: Prostate Specific Antigen 0.4 ng/mL (< OR = 4.0)
== END 2024-06-08 08:22 | disposition home or self-care (01) ==
LOC: ANHGOSHLAB 08:23
PROVIDERS: PCP Internal Medicine; Visit Provider Clinical Nurse Specialist
DX: I48.0 Paroxysmal atrial fibrillation (principal); I73.9 Peripheral vascular disease, unspecified; I10 Essential (primary) hypertension; I65.23 Occlusion and stenosis of bilateral carotid arteries; Z12.5 Encounter for screening for malignant neoplasm of prostate
CPT/HCPCS: 36415; 80053; 80061; 84153; 85025; G0103

== ENCOUNTER 2024-07-03 08:08 | Outpatient (CLI) | payer MEDICARE, SELFPAY ==
--- NOTE | ~2024-07-03 | US_ITS ---
Limited Abdominal Sonogram: Real-time sonographic imaging of the right upper quadrant was performed. Clinical History: Fatty liver Findings: The liver appears echogenic, with no evidence of mass lesion or bile duct dilatation. Main portal vein demonstrates normal direction of flow. The gallbladder is well distended, and appears no rmal with no evidence of gallstone or wall thickening. The common bile duct measures 4 mm. The visua lized pancreas, aorta, and IVC are unremarkable. Impression: No significant abnormality seen. Reviewed, dictated and finalized at location M. SET WINDER OPERATOR Impression: No significant abnormality seen.
== END 2024-07-03 08:09 | disposition home or self-care (01) ==
LOC: ANHIMG 08:11
PROVIDERS: PCP Internal Medicine; Visit Provider Clinical Nurse Specialist
DX: K76.0 Fatty (change of) liver, not elsewhere classified (principal)
CPT/HCPCS: 76705

== ENCOUNTER 2024-07-03 09:17 | Outpatient (CLI) | payer MEDICARE, SELFPAY ==
[2024-07-03 13:46] LABS: Alanine Aminotransferase 56 U/L (6-50); Albumin Level 4.1 g/dL (3.5-5.1); Alkaline Phosphatase 107 U/L (38-126); Anion Gap 10 mmol/L (4-12); Aspartate Amino Transferase 52 U/L (17-59); Bilirubin,Total 0.7 mg/dL (0.2-1.3); Blood Urea Nitrogen 16 mg/dL (9-20); Calcium 8.9 mg/dL (8.4-10.2); Carbon Dioxide 25 mmol/L (22-30); Chloride 106 mmol/L (98-107); Estimated Glomerular Filt Rate > 60; Glucose 87 mg/dL (65-110); Potassium 4.3 mmol/L (3.4-5.0); Sodium 141 mmol/L (137-145)
== END 2024-07-03 09:18 | disposition home or self-care (01) ==
LOC: ANHGOSHLAB 09:18
PROVIDERS: PCP Internal Medicine; Visit Provider Clinical Nurse Specialist
DX: R74.01 Elevation of levels of liver transaminase levels (principal)
CPT/HCPCS: 36415; 80053

== ENCOUNTER 2024-08-10 09:02 | Outpatient (CLI) | payer MEDICARE, SELFPAY ==
--- NOTE | ~2024-08-10 | XR_ITS ---
Clinical Indication: Cough PA and lateral views of the chest: Comparison: 05/11/2019 Findings: The lungs are clear, without evidence of focal consolidation or pleural effusion. Cardiome diastinal silhouette is within normal limits. Bones and soft tissues are unremarkable. Impression: Normal chest. Reviewed, dictated and finalized at [facility]. WORKER Impression: Normal chest.
== END 2024-08-10 09:03 | disposition home or self-care (01) ==
LOC: GOSHIMG 09:03
PROVIDERS: PCP Clinical Nurse Specialist; Visit Provider Clinical Nurse Specialist
DX: R05.9 Cough, unspecified (principal); R06.02 Shortness of breath
CPT/HCPCS: 71046

== ENCOUNTER 2025-06-11 09:15 | Outpatient (CLI) | payer MEDICARE, SELFPAY ==
--- OUTSIDE RECORDS SUMMARY | 2025-06-11 09:31 | XMS_ITS | Clinical Summary ---
Author Organization [facility] [address] [facility] [address] Address [address] [place] [address] Care Team Providers Care Certified Professional Midwife Name Role Phone Gerald Melendez DO Primary Care Provider [phone] Tyron Alexander MD Unavailable [phone] Allergies No known active allergies Medications hydroCHLOROthia zide (HYDRODIURIL) 12.5 mg tablet take 1 tablet by oral route every day 0 0 6 Active amLODIPine (NORVASC) 10 mg tablet take 1 tablet by oral route every day 0 0 6 Active cholecalciferol (VITAMIN D-3) 2,000 unit capsuleIndicati ons:For supplement Take 1 capsule (2,000 Units total) by mouth every morning supplement Active atorvastatin (LIPITOR) 10 mg tabletIndicatio ns:hyperlipidem ia Take 1 tablet (10 mg total) by mouth every morning Active diphenhydrAMINE (BENADRYL) 25 mg capsule Take 1 tablet/capsule (25 mg total) by mouth as needed for itching or allergies Active calcium carbonate (TUMS) 500 mg (200 mg elemental) chewable tabletIndicatio ns:Dyspepsia,He artburn Take 2 tablet/chew tab (1,000 mg total) by mouth as needed for indigestion or heartburn Active tetrahydrozolin e HCl (VISINE OPHT) Administer into affected eye(s) as needed (irritated eyes) Active acetaminophen (TYLENOL) 325 mg tablet Take 2 tablets (650 mg total) by mouth every 6 (six) hours as needed for pain 3 Active Eliquis 5 mg tabletIndicatio ns:VTE Prophylaxis,mul t. clots in past Take 1 tablet (5 mg total) by mouth 2 (two) times a day Can restart on 11/18 4 Active aspirin 81 mg enteric coated tablet Take 1 tablet (81 mg total) by mouth daily Active metoprolol XL (TOPROL-XL) 25 mg extended release tablet Take 1 tablet (25 mg total) by mouth daily Active flecainide (TAMBOCOR) 100 mg tablet TAKE 1 TABLET BY MOUTH TWICE DAILY 180 tablet 3 5 Active furosemide (LASIX) 20 mg tablet Take 1 tablet (20 mg total) by mouth daily 5 Active potassium chloride ER 10 mEq CR tablet Take 1 tablet/capsule (10 mEq total) by mouth daily 5 Active Active Problems Problem Noted Date Diagnosed Date Leg edema, right 12/26/2024 Assessment & Plan (12/26/2024 11:49 AM CDT): Likely associated with previous and most recent activity. DVT scan performed today negative for DVT. Patient does have enlarged lymph nodes upper thigh likely associated with previous cellulitis infection. Recommend compression therapy, leg elevation, activity. Was recently started on Lasix due to right lower extremity edema at outside facility. 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 Good symptom control on flecainide with a minimal prolonged recurrences. On Toprol for rate control. On Eliquis for stroke prevention. On concomitant aspirin 81 mg given recent peripheral intervention. He will follow up with Dr. Alexander for this. From my perspective, this is not required manager terminal and will defer to vascular surgery regarding timing of cessation Assessment & Plan (08/09/2024 3:12 PM SUPERVISOR ELECTROLYT[employer] TINNING): Maintaining sinus rhythm on flecainide. On Toprol for rate control. Continue Eliquis for elevated CHADS2 Vasc score. Repeat EKG with next visit. Assessment & Plan (12/27/2023 1:24 PM CDT): Symptomatic paroxysmal atrial fibrillation. Although his symptoms are quite infrequent, at this point in time he has had to go to the hospital twice in the last year. Accordingly I think it is reasonable to be on rhythm control. Will start on flecainide 100 mg twice daily with a repeat EKG done locally. Continue Toprol. On Eliquis for stroke prevention. Does not require aspirin given concomitant anticoagulant use unless he should undergo lower extremity intervention. Does have sleep apnea which is untreated. Discussed other risk factor modification including regular activity, weight reduction strategies. Bilateral headaches 09/09/2023 Palpitations 09/09/2023 Near syncope 09/08/2023 Dysphagia 11/05/2022 History of DVT (deep vein thrombosis) 07/21/2021 Class 1 obesity in adult 07/21/2021 History of CVA (cerebrovascular accident) 2021 Primary osteoarthritis of left hip 06/16/2021 Overview (06/16/2021): Added automatically from request for surgery [id number] At risk for obstructive sleep apnea 04/01/2021 Primary osteoarthritis of right hip 02/05/2021 Overview (02/05/2021): Added automatically from request for surgery [id number] Hyperlipidemia 10/28/2020 Assessment & Plan (04/03/2025 12:01 PM CDT): Stable controlled. Continue Lipitor Assessment & Plan (01/16/2024 11:29 AM CDT): Hyperlipidemia chronic controlled. Continue Lipitor. Assessment & Plan (12/29/2023 10:02 AM CDT): Hyperlipidemia chronic controlled. Continue medical therapy. Atherosclerosis of moapa ar fadia of both lower extremities with intermittent claudication (CMS/HCC) 10/10/2020 Overview (10/10/2020): Added automatically from request for surgery [id number] Assessment & Plan (04/03/2025 12:00 PM CDT): Continues to deny any symptoms of claudication or rest pain. Reviewed current arterial duplex. Continue aspirin Eliquis follow up in 6 months for routine surveillance with lower extremity arterial duplex with ABIs. Assessment & Plan (09/27/2024 11:10 AM CDT): Continues to do well denying any symptoms of claudication or rest pain. Continue aspirin and Eliquis follow-up in 6 months for routine surveillance with lower extremity arterial duplex Assessment & Plan (03/22/2024 2:56 PM CDT): Since undergoing staged angiogram to both lower extremity patient states that he denies any claudication symptoms or rest pain. Remains on aspirin Plavix and Eliquis. Patient to remain on Plavix for 2 more months. Follow up in 6 months with a lower extremity arterial duplex Assessment & Plan (01/16/2024 11:29 AM CDT): Patient has ongoing symptoms consistent with disabling claudication of the bilateral lower extremities likely multilevel. This is long been attributed to the patient's severe osteoarthritis of the hip although with the symptoms have failed to improve with numerous injections and bilateral hip replacements. At this point I have recommended proceeding with bilateral lower extremity angiogram possible left lower extremity intervention and potential staged manner. The procedure indications and all associated risks have been explained. Patient understands agrees to proceed. Assessment & Plan (12/29/2023 10:02 AM CDT): Patient has ongoing and now worse exertional symptoms of the bilateral lower extremities predominantly buttock and thigh but does extend into the calf. His arterial studies do suggest multilevel disease. Will obtain CT angiogram for more complete evaluation follow up 2 weeks. Continue exercise and anti-platelet and anticoagulation therapy. Assessment & Plan (12/27/2023 1:24 PM CDT): Mild obstruction bilaterally. Does have some concomitant hip pain symptoms. Will see vascular surgery. The wounds or rest pain. On anti-platelet therapy. Address lipids next visit Assessment & Plan (11/10/2021 3:11 PM CDT): Impression: Stable nondisabling claudication both lower extremities. No progressive stenosis noted on arterial Doppler surveillance. Plan: No surgical intervention currently indicated. Recommend ongoing risk factor modifications and follow-up in 1 year for re-evaluation with repeat lower extremity arterial Doppler surveillance. PVD (peripheral vascular disease) ([facility]) 09/18 Closed fracture of body of talus 03/02/2017 Closed displaced fracture of medial malleolus of left tibia with routine healing 03/02/2017 Pulmonary hypertension 05/25/2016 Overview (09/23/2016): Pulmonary HTN Ventricular bigeminy 04/08/2016 Overview (09/23/2016): Ventricular bigeminy Benign hypertension 04/08/2016 Overview (09/23/2016): HTN (hypertension), benign Assessment & Plan (04/03/2025 12:00 PM CDT): Stable controlled. Continue amlodipine, metoprolol, hydrochlorothiazide Assessment & Plan (01/16/2024 11:29 AM CDT): Hypertension chronic controlled. Continue current medical management. Assessment & Plan (12/29/2023 10:02 AM CDT): Stable chronic hypertension. Continue current antihypertensive regimen as directed by PCP. Assessment & Plan (11/10/2021 3:11 PM CDT): Impression: Stable chronic hypertension. Plan: Medications reviewed and recommend continuing daily antihypertensive regimen as directed by patient's primary care physician. Unifocal PVCs 04/08/2016 Overview (09/23/2016): Frequent unifocal PVCs Hemiplegia 04/08/2016 Overview (09/23/2016): CVA, old, hemiparesis Chronic back pain 04/08/2016 Overview (09/23/2016): Chronic back pain greater than 3 months duration Low back pain 04/15/2014 Encounters Date Type Department Care Team Description 04/23/2025 3:30 PM SUPER[employer]OR [employer]INNING Office Visit [facility] Medicine Cardiology [address] [facility] Medical Office Building [address] [place] [address] Rober Hardy MD Paroxysmal atrial fibrillation (HCC) (Primary Dx) 04/03/2025 10:30 AM CDT Office Visit [facility] Vascular and Vein Surgery [address] [place] [phone] Syeda Durán NP Atherosclerosis of moapa artery of both lower extremities with intermittent claudication (CMS/HCC) (HCC) (Primary Dx); Benign hypertension; Pure hypercholesterolemia; Aftercare following surgery of the circulatory system; Atherosclerosis of moapa artery of left lower extremity with intermittent claudication 04/03/2025 8:44 AM CDT - 04/03/2025 11:59 PM CDT Hospital Encounter [facility] Medical Office Building [address] [place] [id number] Atherosclerosis of moapa artery of both lower extremities with intermittent claudication; Aftercare following surgery of the circulatory system Discharge Disposition: Discharge to home or self care 04/03/2025 8:43 AM CDT - 04/03/2025 11:59 PM CDT Hospital Encounter [facility] Office [facility] [address] [place] [id number] Atherosclerosis of moapa artery of both lower extremities with intermittent claudication; Aftercare following surgery of the circulatory system Discharge Disposition: Discharge to home or self care from Last 3 Months Immunizations Immunization Administration Dates Next Due Influenza, Quadrivalent, Hig h Dose, Preservative Free, Intrr 04/10/2021 Moderna SARS-CoV-2 Monovalent Vaccination (12+ Y RS) 09/02/2020,08/01/2020 Surgical History Surgery Date Site/Laterality Comments SPINAL FUSION 06/20/2015 - 06/19/2016 ANKLE SURGERY 06/20/2016 - 06/19/2017 NECK SURGERY 1980s [place] FLUORO GUIDED INJECTION H IP LEFT 02/04/2021 Left FLUORO GUIDED INJECTION HIP RIGHT 02/04/2021 Right HIP ARTHROPLASTY 04/09/2021 Right SPINAL CORD STIMULATOR IMPLANT 06/20/2018 - 06/19/2019 not turned on IR INJECTION ARTHROGRAM SI J OINT BILATERAL WITH GUIDANCE 02/12/2022 Bilateral HIP ARTHROPLASTY 07/23/2021 Left CARDIAC CATHETERIZATION 06/20/2020 - 06/19/2021 AORTIC ILIAC FEMORIAL ANGIOG SEPIDEH INTERVENTION 06/20/2023 - 06/19/2024 Right Medical History Medical History Date Comments Hypertension Stroke (HCC) Hyperlipidemia Deep vein thrombosis (HCC) Emphysema lung Carotid artery disease Low back pain Hip pain, bilateral Atrial fibrillation (HCC) Bleeding disorder Lumbar stenosis Family History Medical History Relation Name Comments Heart attack Brother Myocardial infa rction; Heart disease Brother Liver disease Father Cancer Mother Cancer, unknown ; Cause of : Cancer, unknown Heart disease Mother Anesthesia problems Neg Hx Relation Name Status Comments Brother Father Mother (Age 50) Social History Tobacco Use Types Packs/Day Years Used Date Smoking Tobacco: Never Smokeless Tobacco: Never Alcohol Use Standard Drinks/Week Comments Yes 0 (1 standard drink = 0.6 oz pur e alcohol) [facility] Utilities Answer Date Recorded In the past 12 months has [employer] electric, gas, oil, or water [employer] threatened to shut off services in your home? No 01/16/2024 Social Connection and Isolation Panel Answer Date Recorded In a typical week, how many times do you talk on the phone with family, friends, or neighbors? More than three times a week 01/16/2024 How often do you get togethe r with friends or relatives? Three times a week 01/16/2024 How often do you attend chur or samaritan services? 1 to 4 times per year 01/16/2024 Do you belong to any clubs o r organizations such as roman catholic groups, unions, fraternal or athletic groups, or school groups? Yes 01/16/2024 How often do you attend meet ings of the clubs or organizations you belong to? 1 to 4 times per year 01/16/2024 Are you , , di vorced, , never , or living with a partner? 01/16/2024 AUDIT-C Answer Date Recorded Q1: How often do you have a drink containing alcohol? Never 03/07/2024 Q2: How many drinks containi ng alcohol do you have on a typical day when you are drinking? Patient does not drink Q3: How often do you have si x or more drinks on one occasion? Never 03/07/2024 Overall Financial Resource Strain (CARDIA) Answe r Date Recorded How hard is it for you to pa y for the very basics like food, housing, medical care, and heating? Not hard at all 01/16/2024 Hunger Vital Sign Answer Date Recorded Within the past 12 months, y ou worried that your food would run out before you got the money to buy more. Never true 01/16/20 24 Within the past 12 months, t he food you bought just didn't last and you didn't have money to get more. Never true 01/16/2024 PRAPARE - Transportation Answer Date Re corded In the past 12 months, has l ack of transportation kept you from medical appointments or from getting medications? No 12/19 In the past 12 months, has l ack of transportation kept you from meetings, work, or from getting things needed for daily living? No 01/16/2024 Housing Stability Vital Sign Answer Ankur e Recorded In the last 12 months, was t here a time when you were not able to pay the mortgage or rent on time? No 09/09/2023 In the last 12 months, how many places have you lived? 1 09/09/2023 In the last 12 months, was t here a time when you did not have a steady place to sleep or slept in a penitentiary (including now)? No 09/09/2023 Housing Stability Vital Sign Answer Ankur e Recorded In the last 12 months, was t here a time when you were not able to pay the mortgage or rent on time? No 01/16/2024 In the past 12 months, how m any times have you moved where you were living? 0 01/16/2024 At any time in the past 12 m [facility], were you homeless or living in a penitentiary (including now)? No 01/16/2024 Personal Safety Answer Date Recorded Have you ever been in or are you currently in a harmful physical or emotional relationship or is someone making you feel afraid or unsafe? Denies 03/07/2024 Sex and Gender Information Value Date Recorded Sex Assigned at Not on file Legal Sex Male 4:13 AM SUPERVISOR E[employer]NING Gender Identity Male 01/04/2021 8:34 PM CDT Sexual Orientation Not on file Last Filed Vital Signs Vital Sign Reading Time Taken Comments Blood Pressure 128/65 04/23/2025 3:11 PM SUPERVISOR ELECTROLYT[employer] TINNING Pulse 68 04/23/2025 3:11 PM SUPERVISOR ELECTROLY[employer] TINNING Temperature 36.3 C (97.4 F) 03/07/2024 12:55 PM CDT Respiratory Rate 16 03/07/2024 4:30 PM CDT Oxygen Saturation 96% 04/23/2025 3:11 PM SUPERVISOR ELECTROLYT[employer] TINNING Inhaled Oxygen Concentration - - Weight 108.9 kg (240 lb) 04/23/2025 3:11 PM SUPERVISOR ELECTROLYTIC TINNING Height 177.8 cm (5' 10) 04/23/2025 3:11 PM SUPERVISOR ELECTROLYTIC TINNING Body Mass Index 34.44 04/23/2025 3:11 PM SUPERVISOR ELECTROLY[employer] TINNING Plan of Treatment Health Maintenance Due Date Last Done Comments Colon Cancer Screening-Colonoscopy 1955 Depression Screening 1955 Hepatitis C Screening 1955 DTaP/Tdap/Td Vaccine (1 - Tdap) 1965 Hepatitis B Screening 01/06/1972 Pneumococcal vaccine 65+ (1 of 1 - PCV) 01/06/2004 Zoster Vaccine (1 of 2) 01/06/2004 Well Visit 65+ 2019 Covid-19 Vaccine (3 - season) 2025, 08/01/2020 Influenza Vaccine (#1) 2025 04/10/2021 Fall Risk Assessment 03/07/2025 03/07/2024 Goals Goal Patient Goal Type Associated Problems Recent Progress Patient-Stated? Author CCM Chronic Pain Care Plan Chronic Care Management Worsening( 10:43 AM CDT) Steven Estrada RN Note: Problem: Chronic Pain Goals: 1. Minimize further functional decline 2. Maximize quality of life 3. Control pain Strategies: - Activity/exercise program recommendation - Conservative stepwise pain medicine strategy with multi-disciplinary approach - Recommend healthy lifestyle strategies and compensatory methods as needed Medical Devices Implanted Type Area Property Maintenance Technician Device Identifier Shelf Expiration Date Model / Serial / Lot [employer] [id number] Cup Acetabular Bi-Mentum Od51mm Femoral Proximal Press Fit - Sn/A - [id number] Implanted:Qty: 1 on 04/09/2021 by Wally Harley MD at [facility] Other - see comments Right: Hip [employer] [id number] 07/20/2024 [id number] / N/A / [id number] Description:ALL IMPLANT TIME S ARE APPROXIMATE, IMPLANT PAUSE COMPLETED. [employer] [id number] Articul/Lev 28mm Cementless Hip +1.5mm 12/14 Taper Head Femoral Latex Free - Sn/A - [id number] Implanted:Qty: 1 on 04/09/2021 by Wally Harley MD at [facility] Other - see comments Right: Hip [employer] [id number] 01/17/2026 [id number] / N/A / [id number] Description:ALL IMPLANT TIME S ARE APPROXIMATE, IMPLANT PAUSE COMPLETED. [employer] [id number] Actis L107 Mm Collar Hip 6 High Offset Stem Femoral - Sn/A - [id number] Implanted:Qty: 1 on 04/09/2021 by Wally Harley MD at [facility] Other - see comments Right: Hip [employer] [id number] 02/17/2031 [id number] / N/A / [id number] Description:ALL IMPLANT TIME S ARE APPROXIMATE, IMPLANT PAUSE COMPLETED. [employer] [id number] Liner Acetabular Bi-Mentum Polyethylene Od51mm Id28mm Femoral Proximal - Sn/A - [id number] Implanted:Qty: 1 on 04/09/2021 by Wally Harley MD at [facility] Other - see comments Right: Hip [employer] [id number] 07/20/2024 [id number] / N/A / [id number] Description:ALL IMPLANT TIME S ARE APPROXIMATE, IMPLANT PAUSE COMPLETED. [employer] [id number] Cup Acetabular Bi-Mentum Od51mm Femoral Proximal Press Fit - Sna - [id number] Implanted:Qty: 1 on 07/23/2021 by Wally Harley MD at [facility] Other - see comments Left: Hip [employer] [id number] 10/17/2024 [id number] / NA / [id number] Description:Implant pause pe rformed [employer] [id number] Liner Acetabular Bi-Mentum Polyethylene Od51mm Id28mm Femoral Proximal - Sna - [id number] Implanted:Qty: 1 on 07/23/2021 by Wally Harley MD at [facility] Other - see comments Left: Hip [employer] [id number] 10/17/2025 [id number] / NA / [id number] Description:Implant pause pe rformed [employer] [id number] Actis L107 Mm Collar Hip 6 High Offset Stem Femoral - Sna - [id number] Implanted:Qty: 1 on 07/23/2021 by Wally Harley MD at [facility] Other - see comments Left: Hip [employer] [id number] 05/19/2031 [id number] / NA / [id number] Description:Implant pause pe rformed [employer] [id number] Articul/Lev 28mm Cementless Hip +1.5mm 12/14 Taper Head Femoral Latex Free - Sna - [id number] Implanted:Qty: 1 on 07/23/2021 by Wally Harley MD at [facility] Other - see comments Left: Hip [employer] [id number] 04/19/2026 [id number] / NA / [id number] Description:Implant pause pe rformed [employer] Zilver Ptx 6mm 140mm 125cm Otw Drug Elute Delivery System [id number] - [id number] Implanted:Qty: 1 on 02/22/2024 by Tyron Alexander MD at [facility] [employer] [id number] 11/28/2025 [id number] / / [id number] [employer] System Closure Repair Femoral Artery Suture Mediated Perclose Prostyle 95001-15 - [id number] Implanted:Qty: 1 on 02/22/2024 by Tyron Alexander MD at [facility] [employer] 11/17/2025 79673-35 / / [id number] Explanted Type Area Property Maintenance Technician Device Identifier Shelf Expiration Date Model / Serial / Lot Neurostimulator- Implanted:06/06/20 19 by Unknown, Lala (Quantity not on file) Explanted:Qty: 1 on 11/17/2023 by Akhil Lo MD at [facility] Neurostimulator Back Medtronic Neuro [id number] / / Description:Spoke with lily suggs, knows to bring all components fully charged to MRI appointments. JL 09/16/23 Neurostimulator Lead-06/06/2019 Implanted:06/06/20 19 by Unknown, Lala (Quantity not on file) Explanted:Qty: 1 on 11/17/2023 by Akhil Lo MD at [facility] Neurostimulator Back Medtronic Neuro [id number] / / [employer] Kit Sprint Percutaneous Electrical Nerve Stimulation 9244-6001b - [id number] Implanted:Qty: 1 on 08/08/2023 by Akhil Lo MD at [facility] Explanted:09/12/19 by Ya Vicenet NP (Quantity not on file) [employer] 12/23/2024 9244-600 1B / / [id number] [employer] System Nerve Stimulator Peripheral Single Lead Sprint Endura [id number] - [id number] Implanted:Qty: 1 on 07/21/2023 by Akhil Lo MD at [facility] Explanted:09/12/19 by Ya Vicente NP (Quantity not on file) [employer] 04/29/2024 9244-600 1 / / [id number] Procedures Procedure Name Priority Date/Time Associated Diagnosis Comments US ARTERIAL DUPLEX LOWER EXTREMITY RIGHT LIMITED Schedule Routine, Read Routine (OP Routine) 04/03/2025 9:30 AM CDT Atherosclerosis of moapa artery of both lower extremities with intermittent claudication Aftercare following surgery of the circulatory system US ASYA Schedule Routine, Read Routine (OP Routine) 04/03/2025 9:30 AM CDT Atherosclerosis of moapa artery of both lower extremities with intermittent claudication Aftercare following surgery of the circulatory system from Last 3 Months Results * US Arterial Duplex Lower Extremity Right Limited (04/03/2025 9:30 AM CDT) Anatomical Region Laterality Modality Vascular Right Ultrasound 04/03/2025 8:53 AM CDT Narrative 04/04/2025 2:23 PM CDT Lower Extremity Arterial Duplex Report Patient Name: ENDY QUEVEDO R : 1955 (70y 2m) Sex: M Study Date: 04/03/2025 08:53:47 AM Ht(Inch): Wt(Lb): BSA: [place] Man: YVES CANALES Provider: TYRON ALEXANDER Quality: Adequate Ref Provider: TYRON ALEXANDER PROCEDURES: Arterial Report: A non-invasive vascular imaging study of the right lower extremity arteries and stent was performed using B-mode ultrasound, color flow, and spectral Doppler. INDICATIONS: I70.213 Atherosclerosis of moapa arteries of extremities with intermittent claudication, bilateral legs and Z48.812 Encounter for surgical aftercare following surgery on the circulatory system. HISTORY: S/P BA/STENT RIGHT SFA; BA RIGHT ALAN 02/22/2024. COMPARISONS: The previous exam was completed on 09/26/2024. MEASUREMENTS: Right Value Rt ALUMINIZER Prx PSV 188.00 cm/sec Rt Profunda Prx PSV 254.53 cm/sec Rt SFA Prx PSV 175.39 cm/sec Rt Pop Prx PSV 74.54 cm/sec Rt Pop Dst PSV 58.33 cm/sec STENTS: Right Value Location Rt Mid-Distal SFA Rt Stent Prx [place] PSV 116.00 cm/sec Rt Stent Prx PSV 92.00 cm/sec Rt Stent Mid PSV 149.00 cm/sec Rt Stent Dst PSV 124.00 cm/sec Rt Stent Dst [place] PSV 86.00 cm/sec FINDINGS: Right: Biphasic arteries include the right common femoral artery, profunda femoral artery, proximal superficial femoral artery, mid superficial femoral artery, distal superficial femoral artery and popliteal artery. Stent: The stent is located in the mid-distal superficial femoral artery. Patent lower extremity stent with no evidence of stenosis. CONCLUSION: 1. There is moderate 50-75% stenosis in the right profunda femoral artery. 2. The arterial stent is patent with no evidence of stenosis. ATTESTATION: I have reviewed and interpreted the pertinent images and measurements of this study. I attest to the conclusions in the final report that is provided above. Electronically Signed By: Meño Alexander MD 04/04/2025 1:10:09 PM CDT Procedure Note Meño Alexander MD - 04/04/2025 Lower Extremity Arterial Duplex Report Patient Name: ENDY QUEVEDO R : 1955 (70y 2m) Sex: M Study Date: 04/03/2025 08:53:47 AM Ht(Inch): Wt(Lb): BSA: [place] Man: YVES CANALES Provider: TYRON ALEXANDER Quality: Adequate Ref Provider: TYRON ALEXANDER PROCEDURES: Arterial Report: A non-invasive vascular imaging study of the right lowerextremity arteries and stent was performed using B-mode ultrasound, color flow, andspectral Doppler. INDICATIONS: I70.213 Atherosclerosis of mo[place] arteries of extremities withintermittent claudication, bilateral legs and Z48.812 Encounter for surgical aftercare followingsurgery on the circulatory system. HISTORY: S/P BA/STENT RIGHT SFA; BA RIGHT ALAN 02/22/2024. COMPARISONS: The previous exam was completed on 09/26/2024. MEASUREMENTS: Right Value Rt ALUMINIZER Prx PSV 188.00 cm/sec Rt Profunda Prx PSV 254.53 cm/sec Rt SFA Prx PSV 175.39 cm/sec Rt Pop Prx PSV 74.54 cm/sec Rt Pop Dst PSV 58.33 cm/sec STENTS: Right Value Location Rt Mid-Distal SFA Rt Stent Prx [place] PSV 116.00 cm/sec Rt Stent Prx PSV 92.00 cm/sec Rt Stent Mid PSV 149.00 cm/sec Rt Stent Dst PSV 124.00 cm/sec Rt Stent Dst [place] PSV 86.00 cm/sec FINDINGS: Right: Biphasic arteries include the right common femoral artery, profundafemoral artery, proximal superficial femoral artery, mid superficial femoralartery, distal superficial femoral artery and popliteal artery. Stent: The stent is located in the mid-distal superficial femoral artery.Patent lower extremity stent with no evidence of stenosis. CONCLUSION: 1. There is moderate 50-75% stenosis in the right profunda femoralartery. 2. The arterial stent is patent with no evidence of stenosis. ATTESTATION: I have reviewed and interpreted the pertinent images and measurements ofthis study. I attest to the conclusions in the final report that is provided above. Electronically Signed By: Meño Alexander MD 04/04/2025 1:10:09 PM CDT us Tyron Alexander MD IMG US PROCEDURES Final Re sult * US ASYA (04/03/2025 9:30 AM CDT) Anatomical Region Laterality Modality Vascular N/A Ultrasound 04/03/2025 8:53 AM CDT Narrative 04/04/2025 2:23 PM CDT Lower Extremity Arterial Doppler Report Patient Name: ENDY QUEVEDO R : 1955 Study Date: 04/03/2025 8:53:00 AM Sex: M Skidway Man: YVES CANALES RN/RVT Ref Provider: TYRON ALEXANDER Quality: Adequate Order Provider: TYRON ALEXANDER PROCEDURES: Arterial Report: Ankle - Brachial Index Doppler exam. INDICATIONS: I70.213 Atherosclerosis of mo[place] arteries of extremities with intermittent claudication, bilateral legs and Z48.812 Encounter for surgical aftercare following surgery on the circulatory system. HISTORY: S/P BA/STENT RIGHT SFA; BA RIGHT ALAN 02/22/2024. COMPARISONS: The previous exam was completed on 09/26/2024 RT PT/DP .88/.79 LT PT/DP .74/.63. MEASUREMENTS: Right Value Left Value Rt Brachial Pressure 141 mmHg Lt Brachial Pressure 145 mmHg Rt MANAGER OF LEARNING Pressure 107 mmHg Lt MANAGER OF LEARNING Pressure 111 mmHg Rt DPA Pressure 113 mmHg Lt DPA Pressure 112 mmHg Rt PT ASYA Resting 0.74 Lt PT ASYA Resting 0.77 Rt DP ASYA Resting 0.78 Lt DP ASYA Resting 0.77 FINDINGS: Right Posterior Tibial Artery Analysis: The posterior tibial waveform is biphasic. Right Dorsalis Pedis Artery Analysis: The dorsalis pedis waveform is biphasic. Left Posterior Tibial Artery Analysis: The posterior tibial waveform is biphasic. Left Dorsalis Pedis Artery Analysis: The dorsalis pedis waveform is biphasic. - CONCLUSIONS: 1. Ankle-brachial index of 0.5-0.8 is consistent with claudication disease and moderate occlusive arterial disease in the bilateral lower extremities. ATTESTATION: I have reviewed and interpreted the pertinent images and measurements of this study. I attest to the conclusions in the final report that is provided above. Electronically Signed By: Meño Alexander MD 04/04/2025 1:09:27 PM CDT Procedure Note Meño Alexander MD - 04/04/2025 Lower Extremity Arterial Doppler Report Patient Name: ENDY QUEVEDO R : 1955 Study Date: 04/03/2025 8:53:00 AM Sex: M Skidway Man: YVES CANALES RN/RVT Ref Provider: TYRON ALEXANDER Quality: Adequate Order Provider: TYRON ALEXANDER PROCEDURES: Arterial Report: Ankle - Brachial Index Doppler exam. INDICATIONS: I70.213 Atherosclerosis of mo[place] arteries of extremities withintermittent claudication, bilateral legs and Z48.812 Encounter for surgical aftercare followingsurgery on the circulatory system. HISTORY: S/P BA/STENT RIGHT SFA; BA RIGHT ALAN 02/22/2024. COMPARISONS: The previous exam was completed on 09/26/2024 RT PT/DP .88/.79 LT PT/DP.74/.63. MEASUREMENTS: Right Value Left Value Rt Brachial Pressure 141 mmHg Lt Brachial Pressure 145 mmHg Rt MANAGER OF LEARNING Pressure 107 mmHg Lt MANAGER OF LEARNING Pressure 111 mmHg Rt DPA Pressure 113 mmHg Lt DPA Pressure 112 mmHg Rt PT ASYA Resting 0.74 Lt PT ASYA Resting 0.77 Rt DP ASYA Resting 0.78 Lt DP ASYA Resting 0.77 FINDINGS: Right Posterior Tibial Artery Analysis: The posterior tibial waveform is biphasic. Right Dorsalis Pedis Artery Analysis: The dorsalis pedis waveform is biphasic. Left Posterior Tibial Artery Analysis: The posterior tibial waveform is biphasic. Left Dorsalis Pedis Artery Analysis: The dorsalis pedis waveform is biphasic. - CONCLUSIONS: 1. Ankle-brachial index of 0.5-0.8 is consistent with claudication diseaseand moderate occlusive arterial disease in the bilateral lower extremities. ATTESTATION: I have reviewed and interpreted the pertinent images and measurements ofthis study. I attest to the conclusions in the final report that is provided above. Electronically Signed By: Meño Alexander MD 04/04/2025 1:09:27 PM CDT us Tyron Alexander MD [facility] [place] PROCEDURES Final Re sult from Last 3 Months Insurance MEDICARE COMMERCIAL GENERIC MEDICARE COMMERCIAL GENERIC COMMERCIAL GENERIC MEDICARE COMMERCIAL GENERIC Advance Directives For more information, please contact: [phone] Documents on File Type Date Recorded Patient [place] Regulator Expl anation ADVANCE DIRECTIVE 04/09/2021 6:09 AM * Full Code (Latest Code Status on File) Date Activated Date Inactivated Comments 01/13/2024 11:52 PM 01/16/2024 6:38 PM * Full Code Date Activated Date Inactivated Comments 09/09/2023 1:11 AM 09/10/2023 3:57 PM * Full Code Date Activated Date Inactivated Comments 07/23/2021 10:31 AM 07/24/2021 2:49 PM * Full Code Date Activated Date Inactivated Comments 04/09/2021 11:49 AM 04/10/2021 2:10 PM Care Teams Certified Professional Midwife Relationship Specialty Start Date End Date Gerald Melendez DO PCP - General Internal Medicine 12/27/17 Tyron Alexander MD [address] [place] [address] Surgeon Vascular Surgery 02/22/24
--- OUTSIDE RECORDS SUMMARY | 2025-06-11 09:31 | XMS_ITS | Clinical Summary ---
Author Organization [facility] Address [address] [place] [address] Care Team Providers Care Work Counselor Name Role Phone Gerald Melendez DO Primary Care Provider [phone] Source Comments [facility],non-owned Affiliates and Associated Physician Practices is amultiple site organization consisting of ambulatory clinics and hospital sitesin [place], [place], [place] and [place]. This disclosure is being madepursuant to the Care Everywhere program and may not contain all information available regarding this patient. Last updated 18.[employer] [facility] Allergies No known active allergies Medications * Be aware that medications may not be up to date on this document. Alwaysverify current medications with the patient. amLODIPine (Norvasc) 10 MG tablet Take 1 (one) tablet by mouth once daily Active metoprolol tartrate IR (Lopressor) 25 MG tablet Take 1 (one) tablet by mouth once daily Active aspirin (Aspirin) 81 MG chew tablet Take 1 (one) tablet by mouth once daily Active vitamin D3 (Cholecalcifer ol) 25 MCG (1000 UNITS) tablet Take 2 (two) tablets by mouth once daily 2000 iu daily. Active acetaminophen (Tylenol) 325 MG tablet Take 2 (two) tablets by mouth every 6 hours as needed Maximum allowable Acetaminophen amount = 4 Grams (4000 mg) / 24 hours. 3 Active atorvastatin (Lipitor) 10 MG tablet Take 1 (one) tablet by mouth at bedtime 3 Active hydroCHLOROthi azide (Microzide) 12.5 MG capsule Take 1 (one) capsule by mouth once daily 90 capsule 4 3 Active apixaban (Eliquis) 5 MG tablet Take 1 (one) tablet by mouth 2 times daily 0 3 Active flecainide (Tambocor) 50 MG tablet Take by mouth once daily Active furosemide (Lasix) 20 MG tablet Take 1 (one) tablet by mouth once daily 30 tablet 5 Active potassium chloride ER (Klor-Con M) 10 MEQ tablet Take 1 (one) tablet by mouth once daily 30 tablet 5 Active Active Problems Problem Noted Date Diagnosed Date Dysphagia, unspecified type 11/05/2022 Family History Medical History Relation Name Comments Cancer Mother CAD (Coronary Artery Disease) Sister Relation Name Status Comments Mother Sister Social History Tobacco Use Types Packs/Day Years Used Date Smoking Tobacco: Never Smokeless Tobacco: Never Alcohol Use Standard Drinks/Week Comments Not Currently 0 (1 standard drink = 0.6 oz pur e alcohol) Overall Financial Resource Strain (CARDIA) Answe r Date Recorded How hard is it for you to pa y for the very basics like food, housing, medical care, and heating? Not very hard 11/06/2022 [facility] - Occupational Stress Questionnaire Answer Date Recorded Do you feel stress - tense, restless, nervous, or anxious, or unable to sleep at night because your mind is troubled all the time - these days? To some extent 11/06/2022 Hunger Vital Sign Answer Date Recorded Within the past 12 months, y ou worried that your food would run out before you got the money to buy more. Never true 11/07/19 23 Within the past 12 months, t he food you bought just didn't last and you didn't have money to get more. Never true 11/06/2022 PRAPARE - Transportation Answer Date Re corded In the past 12 months, has l ack of transportation kept you from medical appointments or from getting medications? No 10/19 In the past 12 months, has l ack of transportation kept you from meetings, work, or from getting things needed for daily living? No 11/06/2022 Housing Stability Vital Sign Answer Ankur e Recorded In the last 12 months, was t here a time when you were not able to pay the mortgage or rent on time? No 11/06/2022 In the last 12 months, how many places have you lived? 1 11/06/2022 In the last 12 months, was t here a time when you did not have a steady place to sleep or slept in a fdc (including now)? No 11/06/2022 Sex and Gender Information Value Date Recorded Sex Assigned at Male 12/11/2024 1:32 PM CDT Legal Sex Male 7:10 PM CDT Gender Identity Not on file Sexual Orientation Not on file Last Filed Vital Signs Vital Sign Reading Time Taken Comments Blood Pressure 138/72 12/11/2024 2:40 PM CDT Pulse 65 12/11/2024 2:40 PM CDT Temperature 36.6 C (97.9 F) 12/11/2024 1:20 PM CDT Respiratory Rate 18 12/11/2024 1:20 PM CDT Oxygen Saturation 97% 12/11/2024 2:40 PM CDT Inhaled Oxygen Concentration - - Weight 108.9 kg (240 lb) 12/11/2024 1:20 PM CDT Height 177.8 cm (5' 10) 12/11/2024 1:20 PM CDT Body Mass Index 34.44 12/11/2024 1:20 PM CDT Plan of Treatment Health Maintenance Due Date Last Done Comments COLOGUARD (AGES 45-75) - COL ON CA SCREENING 1955 COLON MONITORING 1955 COLONOSCOPY - COLON CA SCREENING 1955 CT COLONOGRAPHY - COLON CA SCREENING 1955 Colorectal Cancer Screening 1955 FIT - COLON CA SCREENING 1955 FLEX SIG - COLON CA SCREENING 1955 MEDICARE AWV 12 MONTHS 1955 HEPATITIS C SCREENING 01/01/1972 DTAP/TDAP/TD VACCINES (1 - Tdap) 1973 PNEUMOCOCCAL VACCINE 50+ (1 of 1 - PCV) 01/06/2004 Respiratory Syncytial Virus (RSV) Vaccine Pt: or over 60 yrs (1 - Risk 50-74 years 1-dose series) 01/06/2004 ZOSTER VACCINE (1 of 2) 01/06/2004 DEPRESSION SCREENING 06/20/2024 COVID-19 VACCINE (3 - 2024-2 6 season) 2025 09/02/2020, 08/01/2020 INFLUENZA VACCINE (#1) 2025 04/10/2021 HEPATITIS B VACCINE Aged Out No longe r eligible based on patient's age to complete this topic HIB VACCINE Aged Out No longer eligi ble based on patient's age to complete this topic HPV VACCINE Aged Out No longer eligi ble based on patient's age to complete this topic MENINGOCOCCAL (Group B) VACCINE SHARED DECISION-MAKING Aged Out No longer eligible based on patient's age to complete this topic MENINGOCOCCAL GROUPS A/C/Y/W VACCINE Aged Out No longer eligible b ased on patient's age to complete this topic Insurance MEDICARE MEDICARE SUPPLEMENT PAYOR GENERIC MEDICARE MEDICARE SUPPLEMENT PAYOR GENERIC MEDICARE Advance Directives * Full Code (Latest Code Status on File) Date Activated Date Inactivated Comments 11/06/2022 4:58 AM 11/07/2022 2:40 PM Care Teams Work Counselor Relationship Specialty Start Date End Date Gerald Melendez DO PCP - General Internal Medicine 11/06/22
--- OUTSIDE RECORDS SUMMARY | 2025-06-11 09:31 | XMS_ITS | Encounter Summary ---
Author Organization [facility] Address [address] [place] [address] Care Team Providers Care Food Production Machine Operator Name Role Phone Gerald Melendez DO Primary Care Provider [phone] Gerald Melendez DO Primary Care Provider [phone] Candido Lopez Primary Care Provider [phone] Candido Lopez Primary Care Provider [phone] Gerald Melendez DO Primary Care Provider [phone] Candido Lopez Primary Care Provider [phone] Candido Lopez Primary Care Provider [phone] Gerald Melendez DO Primary Care Provider [phone] Candido Lopez Primary Care Provider [phone] Gerald Melendez DO Primary Care Provider [phone] Candido Lopez Primary Care Provider [phone] Gerald Melendez DO Primary Care Provider [phone] Tyron Alexander MD Unavailable + [phone] Encounter Details Date Type Department Care Team (Late st Contact Info) Description 09/10/2016 Orders Only [facility] ProviderTerra MD [facility] [place] [address] Social History Tobacco Use Types Packs/Day Years Used Date Smoking Tobacco: Never Alcohol Use Standard Drinks/Week Comments Yes 0 (1 standard drink = 0.6 oz pur e alcohol) Sex and Gender Information Value Date Recorded Sex Assigned at Not on file Legal 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 us Historical Provider [facility] MAICOL BROWN Final Result documented in this encounter Visit Diagnoses Not on filedocumented in this encounter Care Teams Food Production Machine Operator Relationship Specialty Start Date End Date Gerald Melendez DO PCP - General 09/17/16 02/28/17 Gerald Melendez DO PCP - General 04/08/16 09/16/16 Candido Lopez [address] [place], [place] [id number] PCP - General 03/01/17 03/10/17 Candido Lopez [address] [place] [address] PCP - General 03/11/17 03/11/17 Gerald Melendez DO PCP - General 03/12/17 03/15/17 Candido Lopez [address] [place] [address] PCP - General 03/16/17 04/14/17 Candido Lopez [address] [place] [address] PCP - General 04/15/17 04/15/17 Gerald Melendez DO PCP - General 04/16/17 04/21/17 Candido Lopez [address] [place] [address] PCP - General 04/22/17 05/19/17 Gerald Melendez DO PCP - General 05/20/17 06/07/17 Candido Lopez [address] [place] [address] PCP - General 06/08/17 12/26/17 Gerald Melendez DO PCP - General Internal Medicine 12/27/17 Tyron Alexander MD [address] [place] [address] Surgeon Vascular Surgery 02/22/24 documented as of this encounter
--- OUTSIDE RECORDS SUMMARY | 2025-06-11 09:31 | XMS_ITS | Clinical Summary ---
Author Organization [facility] Address [address] [place] [address] Care Team Providers Care Engine Buildup Mechanic Name Role Phone Gerald Melendez DO Primary Care Provider Social History Tobacco Use Types Packs/Day Years Used Date Smoking Tobacco: Never Assessed Sex and Gender Information Value Date Recorded Sex Assigned at Not on file Legal Sex Male 5:44 PM CDT Gender Identity Not on file Sexual Orientation Not on file Plan of Treatment Health Maintenance Due Date Last Done Comments Colorectal Cancer Screening Colonoscopy (10 Years) 1955 Hepatitis C 01/06/1972 DTaP, Tdap and Td Vaccines ( 1 - Tdap) 1973 Pneumococcal Vaccine: 50+ Years (1 of 1 - PCV) 01/06/2004 Zoster Vaccines (1 of 2) 01/06/2004 Annual Medicare Wellness Visit 2019 COVID-19 Vaccine (3 - 2024-2 6 season) 2025 09/02/2020, 08/01/2020 Influenza Adult (#1) 2025 RSV Immunization or 60+ Years (1 - 1-dose 75+ series) 2029 Hepatitis A Vaccines Aged Out No long er eligible based on patient's age to complete this topic Meningococcal B Vaccine Aged Out No l onger eligible based on patient's age to complete this topic Meningococcal Vaccine Aged Out No bri christian eligible based on patient's age to complete this topic RSV Immunizations Under 20 Months Aged Out No longer eligible b ased on patient's age to complete this topic Medical Devices Implanted Type Area Rn Night Device Identifier Shelf Expiration Date Model / Serial / Lot Stimulator Lead- 9 Implanted:05/20 (Quantity not on file) Lead Implant [employer] [id number] / [id number] / Stimulator Lead- 9 Implanted:05/20 (Quantity not on file) Lead Implant [employer] [id number] / [id number] / Stimulator Implant-2018 Implanted:05/20 (Quantity not on file) Stimulator Implant Abdomen [employer] CARDIAC RHYTHM AND HEART FAILURE - DIV M [id number] / [id number] H / Description:MR Conditional a t 1.5 T only! Needs remote to turn off stimulation, Remote shows full body eligible , Follow scan conditions in MRI technical manual , normal operating mode , max total scan time 30 minutes in a 90 minute window [place] [address] [place] [address] MEDICARE Care Teams Engine Buildup Mechanic Relationship Specialty Start Date End Date Gerald Melendez DO [facility] [address] [place] [address] PCP - General INTERNAL MEDICINE 09/22/23
--- OUTSIDE RECORDS SUMMARY | 2025-06-11 09:32 | XMS_ITS | Encounter Summary ---
Author Organization [facility] Address [address] [place] [address] Phone Care Team Providers Care Secretary Bookkeeper Name Role Phone Gerald Melendez DO Primary Care Provider [phone] Tyron Alexander MD Unavailable [phone] Encounter Details Date Type Department Care Team (Late st Contact Info) Description 2022 Orders Only [facility] [phone] Scanning, Provider Social History Tobacco Use Types Packs/Day Years Used Date Smoking Tobacco: Never Smokeless Tobacco: Never Alcohol Use Standard Drinks/Week Comments Yes 0 (1 standard drink = 0.6 oz pur e alcohol) AUDIT-C Answer Date Recorded Q1: How often do you have a drink containing alc ohol? 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 Gender Identity Male 01/04/2021 8:34 PM CDT Sexual Orientation Not on file documented as of this encounter Plan of Treatment Not on file documented as of this encounter Procedures Procedure Name Priority Date/Time Associated Diagnosis Comments SCAN - RADIOLOGY/IMAGING 2022 documented in this encounter Results * SCAN - RADIOLOGY/IMAGING (2022) Anatomical Region Laterality Modality Other us Provider Scanning Final Result documented in this encounter Visit Diagnoses Not on filedocumented in this encounter Care Teams Secretary Bookkeeper Relationship Specialty Start Date End Date Gerald Melendez DO PCP - General Internal Medicine 12/27/17 Tyron Alexander MD [address] [place] [address] Surgeon Vascular Surgery 02/22/24 documented as of this encounter
[2025-06-11 13:23] LABS: Hematocrit 44.2 % (42.0-52.0); Hemoglobin 14.9 g/dL (14.0-18.0); Immature Granulocyte Percent A 0.4 % (0-0.5); Lymphocytes Absolute Auto 1.60 K/mm3 (0.9-3.2); Mean Corpuscular HGB Conc 33.7 g/dl (32-36); Mean Corpuscular Hemoglobin 33.4 pg (26-34); Mean Corpuscular Volume 99.1 fl (80-100); Nucleated Red Blood Cells Absolute Auto 0.000 K/mm3 (0.0-0.012); Nucleated Red Blood Cells Perc 0.0 % (0.0-0.2); Platelet Count Result 244 k/mm3 (150-375); Red Blood Count 4.46 M/mm3 (4.6-6.20); White Blood Count 5.5 K/mm3 (4.5-10.0)
[2025-06-11 13:33] LABS: Alanine Aminotransferase 66 U/L (6-50); Albumin Level 4.4 g/dL (3.5-5.1); Alkaline Phosphatase 121 U/L (38-126); Anion Gap 12 mmol/L (4-12); Aspartate Amino Transferase 47 U/L (17-59); Bilirubin,Total 0.6 mg/dL (0.2-1.3); Blood Urea Nitrogen 15 mg/dL (9-20); Calcium 9.4 mg/dL (8.4-10.2); Carbon Dioxide 24 mmol/L (22-30); Chloride 103 mmol/L (98-107); Estimated Glomerular Filt Rate > 60; Glucose 105 mg/dL (65-110); HDL Direct 31 mg/dL; Potassium 4.1 mmol/L (3.4-5.0); Sodium 139 mmol/L (137-145); Total Protein 8.2 g/dL (6.3-8.2)
[2025-06-11 13:38] LABS: Hemoglobin A1C 5.8 % (<5.7)
[2025-06-11 13:47] LABS: Cholesterol 91 mg/dL (0-200); Triglycerides 67 mg/dL (<150)
[2025-06-11 14:11] LABS: Prostate Specific Antigen 0.4 ng/mL (< OR = 4.0); Thyroid Stimulating Hormone 2.160 uIU/mL (0.465-4.680)
== END 2025-06-11 09:16 | disposition home or self-care (01) ==
PROVIDERS: PCP Internal Medicine; Visit Provider Clinical Nurse Specialist
DX: Z12.5 Encounter for screening for malignant neoplasm of prostate (principal); R00.2 Palpitations; I10 Essential (primary) hypertension; I48.0 Paroxysmal atrial fibrillation; I25.10 Atherosclerotic heart disease of native coronary artery without angina pectoris; Z79.01 Long term (current) use of anticoagulants
CPT/HCPCS: 36415; 80053; 80061; 83036; 84153; 84443; 85025; G0103